=== PATIENT | male | born 1960 | race Caucasian/White ===

== ENCOUNTER → 2016-12-13 | Outpatient (CLI) | payer OTHER ==
[2016-12-13 16:47] LABS: Bilirubin, Delta 0.3 mg/dL (0.0-0.2); Total Bilirubin 0.7 mg/dL (0.2-1.3); Total Protein 7.5 g/dL (6.3-8.2)
== END ==
LOC: LABWHC1 16:11
PROVIDERS: ATTEND Psychiatry & Neurology Neurology
DX: R56.9 Unspecified convulsions (principal)
CPT/HCPCS: 36415; 80076

== ENCOUNTER → 2017-05-30 | Outpatient (CLI) | payer MEDICARE, OTHER ==
[2017-05-30 11:45] LABS: Basophils % (A) 1 %; CH 31.6; CHCM 33.7; Eosinophils # (A) 0.1 k/uL (0-0.7); Eosinophils % (A) 2 %; HCT 43.6 % (39.0-53.0); HDW 2.79; HGB 14.9 gm/dL (13.0-17.5); Luc # (Auto) 0.16; Luc % (Auto) 3; Lymphocytes # (A) 0.9 k/uL (1.0-4.8); Lymphocytes % (A) 17 %; MCH 32.3 pg (25.0-35.0); MCHC 34.2 g/dL (31.0-37.0); MCV 94.3 fL (80.0-100.0); Mean Platelet Volume 7.5; Monocytes # (A) 0.3 k/uL (0-1.0); Monocytes % (A) 6 %; Neutrophils # (A) 3.8 k/uL (1.3-7.7); Neutrophils % (A) 71 %; RBC 4.63 m/uL (4.30-5.90); RDW 13.9 % (11.5-15.5); WBC 5.3 k/uL (3.8-10.6); WBC (Perox) 5.24
[2017-05-30 11:55] LABS: ALT 27 U/L (21-72); AST 31 U/L (17-59); Alkaline Phosphatase 78 U/L (38-126); Anion Gap 14 mmol/L; Blood Urea Nitrogen 18 mg/dL (9-20); Calcium 9.8 mg/dL (8.4-10.2); Carbon Dioxide 19 mmol/L (22-30); Chloride 108 mmol/L (98-107); Glucose 97 mg/dL (74-99); Non-African American GFR(MDRD) >60 (>60 ml/min/1.73 sqM); Potassium 4.2 mmol/L (3.5-5.1); Sodium 141 mmol/L (137-145); Total Bilirubin 0.5 mg/dL (0.2-1.3); Total Protein 7.9 g/dL (6.3-8.2)
[2017-05-30 12:40] LABS: Vitamin B12 940 pg/mL (239-931)
== END | disposition home or self-care (01) ==
LOC: LABWHC1 11:00
PROVIDERS: ATTEND Nurse Practitioner Acute Care
DX: E55.9 Vitamin D deficiency, unspecified (principal); G35 Multiple sclerosis
CPT/HCPCS: 36415; 80053; 82306; 82607; 84207; 84439; 84443; 84481; 85025

== ENCOUNTER 2017-08-08 11:44 | Emergency (ER) | payer MEDICARE, OTHER ==
[2017-08-08 11:56] VITALS: RESP 18; TEMP 97.4
[2017-08-08] MEDS ORDERED: DIPH,PERTUS(ACELL)TETVAC-LF 0.5 ML VIAL IM ONE (12:13)
--- NOTE | 2017-08-08 12:19 | ED ---
General Adult HPI - General Chief complaint: Skin/Abscess/Foreign Body Stated complaint: Thumb laceration Time Seen by Provider: 08/08/17 12:04 Source: patient, RN notes reviewed, old records reviewed Mode of arrival: wheelchair Limitations: no limitations - History of Present Illness Initial comments: Rohit is a 49-year-old male presents to the emergency Department chief complaint of left thumb laceration. Patient reports he was wearing gloves, and cut the tip of his thumb on a circular saw. No nail involvement. Patient reports the bleeding was well controlled afterwards. He has a history of nerve disorders including EMS. He reports that he normally has poor sensation distally. He reports that below the cut he does have some normal sensation. Patient states that he has full range of motion of the finger. He does not know the last tetanus shot he's had. Patient denies any other injuries associated with this accident. Patient denies any recent fever, chills, shortness of breath, chest pain, back pain, abdominal pain, nausea vomiting, numbness or tingling, dysuria or hematuria, constipation or diarrhea, headaches or visual changes, or any other current symptoms - Related Data Home Medications Medication Instructions Recorded Confirmed Aspirin 81 mg PO DAILY 12/10/14 08/08/17 Losartan Potassium [Losartan 100 mg PO DAILY 12/11/14 08/08/17 Potassium] Dimethyl Fumarate [Tecfidera] 240 mg PO BID 08/27/15 08/08/17 ALPRAZolam [Xanax] 0.25 mg PO DAILY PRN 09/10/15 08/08/17 Baclofen [Lioresal] 10 mg PO TID 09/10/15 08/08/17 Cholecalciferol [Vitamin D3] 2,000 unit PO DAILY 09/10/15 08/08/17 Cetirizine HCl [Zyrtec] 10 mg PO HS 08/08/17 08/08/17 Clopidogrel Bisulfate [Plavix] 75 mg PO HS 08/08/17 08/08/17 Fluticasone Nasal [place] [Flonase 2 spr EA NOSTRIL DAILY 08/08/17 08/08/17 Nasal [place]] Gabapentin 600 mg PO TID 08/08/17 08/08/17 HYDROcodone/APAP 10-325MG [[place] 1 tab PO TID PRN 08/08/17 08/08/17 10-325] Meloxicam [Mobic] 15 mg PO HS 08/08/17 08/08/17 Omeprazole 20 mg PO DAILY 08/08/17 08/08/17 Topiramate [Topamax] 200 mg PO BID 08/08/17 08/08/17 lamoTRIgine [LaMICtal] 100 mg PO BID 08/08/17 08/08/17 Allergies Allergy/AdvReac Type Severity Reaction Status Date / Time Iodinated Contrast- Oral and Allergy Anaphylaxis Verified 08/08/17 12:06 IV Dye [Iodinated Contrast Media - IV Dye] prochlorperazine edisylate Allergy Swelling Verified 08/08/17 12:06 [From Compazine] prochlorperazine maleate Allergy Swelling Verified 08/08/17 12:06 [From Compazine] [id number] Reductase AdvReac Unknown Verified 08/08/17 12:06 Inhibitor Review of Systems ROS Statement: Those systems with pertinent positive or pertinent negative responses have been documented in the HPI. ROS Other: All systems not noted in ROS Statement are negative. Past Medical History Past Medical History: CVA/TIA, GERD/Reflux, Hyperlipidemia, Hypertension, Neurologic Disorder, Seizure Disorder Additional Past Medical History / Comment(s): Multiple Sclerosis,numbness. rediculopathy, myopathy, back and neck problems. 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 History of Any Multi-Drug Resistant Organisms: None Reported Past Surgical History: Back Surgery, Orthopedic Surgery Additional Past Surgical History / Comment(s): right foot surgery - 40 years ago january 2015- surgery fusion to cervical, and replaced disc neck, Past Anesthesia/Blood Transfusion Reactions: No Reported Reaction Past Psychological History: No Psychological Hx Reported Smoking Status: Current every day smoker Past Alcohol Use History: None Reported Past Drug Use History: None Reported - Past Family History Mother Family Medical History: No Reported History General Exam Limitations: no limitations General appearance: alert, in no apparent distress Head exam: Present: atraumatic, normocephalic, normal inspection Eye exam: Present: normal appearance, PERRL, EOMI. Absent: scleral icterus, conjunctival injection, periorbital swelling ENT exam: Present: normal exam, mucous membranes moist Neck exam: Present: normal inspection. Absent: tenderness, meningismus, lymphadenopathy Respiratory exam: Present: normal lung sounds bilaterally. Absent: respiratory distress, wheezes, rales, rhonchi, stridor Cardiovascular Exam: Present: regular rate, normal rhythm, normal heart sounds. Absent: systolic murmur, diastolic murmur, rubs, gallop, clicks GI/Abdominal exam: Present: soft, normal bowel sounds. Absent: distended, tenderness, guarding, rebound, rigid Left Shoulder Exam: Present: normal inspection, full ROM. Absent: tenderness Upper Arm exam: Present: normal inspection, full ROM Elbow exam: Present: normal inspection, full ROM Forearm Wrist exam: Present: normal inspection, full ROM Hand Wrist exam: Present: laceration (2cm laceration over distal left thumb. No nail bed involvement. Normal sensation distally, normal cap refill). Absent: normal inspection Neuro motor exam: Present: wrist extension intact, thumb opposition intact, thumb IP flexion intact, thumb adduction intact, fingers 2-5 abduction intact Vascular: Present: normal capillary refill Back exam: Present: normal inspection Neurological exam: Present: alert, oriented X3, CN II-XII intact Psychiatric exam: Present: normal affect, normal mood Skin exam: Present: warm, dry, intact, normal color. Absent: rash Course Vital Signs 08/08/17 11:52 Temperature 97.4 F L Pulse Rate 67 Respiratory 18 Rate Blood Pressure 141/79 O2 Sat by Pulse 99 Oximetry Procedures - Laceration Laceration #1 Site: hand (left thumb) Size (cm): 2 Description: linear Depth: simple, single layer Anesthetic Used: lidocaine 1% Anesthesia Technique: local infiltration Amount (mls): 3 Pre-repair: wound explored, irrigated extensively Type of Sutures: nylon Size of Sutures: 5-0 Number of Sutures: 4 Technique: simple, interrupted Patient Tolerated Procedure: well, no complications Medical Decision Making - Medical Decision Making 57-year-old male presents emergency Department chief complaint of left thumb laceration after he cut it with a circular saw. He was wearing gloves. No nail bed involvement. Patient was given an updated tetanus vaccine. Wound was thoroughly irrigated, well proximal pain with 4 sutures. Discussed monitoring for any signs of infection including redness swelling or drainage. Discussed suture care instructions. He has full range of motion of the finger, normal sensation and normal capillary refill. Patient understands treatment plan will comply. Return parameters were discussed. Disposition Clinical Impression: Laceration of left thumb Disposition: HOME SELF-CARE Condition: Good Instructions: Care For Your Stitches (ED), Laceration (ED) Additional Instructions: Please return to the emergency room in 8-10 days to have sutures removed. Please leave wound covered for the first 24-48 hours and then leave open to air after that time. Please use clean soap and water to clean the suture area to prevent scabbing over the top of your sutures. Please watch for any signs of infection which may include but not limited to increased pain, swelling, redness , fever or chills. Please return to the emergency room if any signs of infection do occur. Please return to the emergency room for any other concerns or complications. Referrals: Juan C Saini III, MD [Primary Care Provider] - 1-2 days Time of Disposition: 12:19
[2017-08-08 13:01] VITALS: BP 128/66; PULSE 56
== END 2017-08-08 13:00 | disposition home or self-care (01) ==
LOC: EC 11:44
DX: S61.012A Laceration without foreign body of left thumb without damage to nail, initial encounter (principal); K21.9 Gastro-esophageal reflux disease without esophagitis; E78.5 Hyperlipidemia, unspecified; I10 Essential (primary) hypertension; G40.909 Epilepsy, unspecified, not intractable, without status epilepticus; G35 Multiple sclerosis; F17.200 Nicotine dependence, unspecified, uncomplicated; Z23 Encounter for immunization; Z86.73 Personal history of transient ischemic attack (TIA), and cerebral infarction without residual deficits; Z88.8 Allergy status to other drugs, medicaments and biological substances; Z91.041 Radiographic dye allergy status; Z79.1 Long term (current) use of non-steroidal anti-inflammatories (NSAID); Z79.02 Long term (current) use of antithrombotics/antiplatelets; Z79.82 Long term (current) use of aspirin; Z79.891 Long term (current) use of opiate analgesic; Z79.899 Other long term (current) drug therapy; W45.8XXA Other foreign body or object entering through skin, initial encounter
CPT/HCPCS: 12001; 90471; 90715; 99283

== ENCOUNTER → 2017-08-18 | Outpatient (CLI) | payer MEDICARE, OTHER ==
--- NOTE | 2017-08-18 23:25 | MR ---
EXAMINATION TYPE: MR corinine/lspine wo con DATE OF EXAM: 08/18/2017 COMPARISON: NONE HISTORY: Mid & lower back pain, MS protocol TECHNIQUE: Multiplanar, multisequence imaging of the lumbar spine is performed without IV contrast. M ultiplanar multiecho imaging of the thoracic spine was performed without contrast. FINDINGS: Thoracic vertebra have fairly normal alignment. Thoracic spinal cord has normal signal wilbur trudy without evidence of edema. There is posterior disc bulging at C4-5 C5-6 C6-7. There is 6 to 7 mm spinal stenosis at C4-5. There is posterior small disc herniation at T1-T2. There is no thoracic comp ression fracture. There is no thoracic paraspinal mass. I see no focal bone destruction. The lumbar vertebra have fairly normal alignment. There is slight narrowing of the disc spaces. There is developmentally adequate spinal canal. There is no spinal stenosis. Lumbar nerve roots appear nor mal. The neural foramina appear normal. Posterior elements are intact. There is no lumbar paraspinal mass. The sacroiliac joints appear normal. I see no focal bone destruction in the lumbar spine. There is a few millimeter anterior subluxation of L4 in relation L5. CONCLUSION: There is 6 to 7 mm cervical spinal stenosis at C4-5 due to posterior disc herniation. Small posterior disc herniation at T1 to without spinal stenosis. Multilevel thoracic spondylosis. No significant co mpression deformity. Minimal degenerative first-degree L4-5 spondylolisthesis. No lumbar disc herniation or fracture.
== END | disposition home or self-care (01) ==
LOC: RADMRIMAIN 17:44
PROVIDERS: ATTEND Psychiatry & Neurology Neurology
DX: G35 Multiple sclerosis (principal); M48.02 Spinal stenosis, cervical region; M50.221 Other cervical disc displacement at C4-C5 level; M51.24 Other intervertebral disc displacement, thoracic region; M43.16 Spondylolisthesis, lumbar region; M47.814 Spondylosis without myelopathy or radiculopathy, thoracic region
CPT/HCPCS: 72146; 72148

== ENCOUNTER → 2017-08-21 | Outpatient (CLI) | payer MEDICARE, OTHER ==
[2017-08-21 12:16] LABS: Blood Urea Nitrogen 17 mg/dL (9-20); Non-African American GFR(MDRD) >60 (>60 ml/min/1.73 sqM)
--- NOTE | 2017-08-22 08:50 | MR ---
EXAMINATION TYPE: MR brain/cspine wo/w DATE OF EXAM: 08/21/2017 COMPARISON: 08/23/2016 HISTORY: Multiple sclerosis, Cervicalgia CONTRAST: Performed utilizing 9 mL intravenous Gadavist gadolinium contrast. TECHNIQUE: Multiplanar, multisequence imaging of the brain is performed on a 3.0 Korin magnet. Demye linating disease protocol with additional Sagittal Flair sequence is performed. Study is performed wi thin 24 hours of arrival to the hospital. FINDINGS: T2 White Matter Lesions Present : Yes Approximate Number of Lesions: Multiple scattered Locations Identified : Symptoms, subcortical white matter and periventricular white matter Size of Largest Lesion(s): 1. 0.4 x 0.5 x 0.5 cm. Location: Right watershed white matter Sequence 601 Image 20 (axial) and Sequ ence 701 Image 25 (sagittal). 2. 0.5 x 0.6 x 0.5 cm. Location: Left periventricular centrum semiovale Sequence 601 Image 22 (axia l) and Sequence 701 Image 14 (sagittal). Enhancing Lesion(s) Present: No Change from Prior: Stable Diffusion-weighted imaging is performed. No abnormal hyperintensity is present to suggest an acute i ntracranial infarct or acute ischemic change. Ventricles and sulci are slightly prominent for the patient age. There are no abnormal extra-axial fluid collections. The ventricular system and cisternal spaces are normal in size and appearance. The brain volume is age appropriate. The craniocervical junction nell ears within normal limits. The dural venous sinuses appear patent. No abnormal enhancement is present on post contrast images. . The visualized sinuses are clear. Visu alized orbits are unremarkable. IMPRESSION: 1. Multiple bilateral scattered white matter changes, some of which are perpendicular to the ventric les can be suggestive for, but not diagnostic of, multiple sclerosis. The findings appear stable from the previous examination. EXAMINATION TYPE: MR brain/cspine wo/w DATE OF EXAM: 08/21/2017 COMPARISON: NONE HISTORY: Multiple sclerosis, Cervicalgia CONTRAST: Performed utilizing 9 mL intravenous Gadavist gadolinium contrast. TECHNIQUE: Multiplanar multiecho imaging on a 3.0 Korin magnet is performed through the cervical spin e. FINDINGS: The craniovertebral junction is normal. Vertebral body alignment is normal. There is an anterior fusion of C3-4. C7-T1: No focal disc herniation or significant disc bulge is evident. No spinal canal stenosis or n eural foraminal stenosis is present. C6-7: Minimal disc bulge is present with anterior thecal sac contact. No spinal canal stenosis presen t. No cord contact is evident. Some foraminal narrowing may be present.. C5-6: There is narrowing of the disc space. Minimal residual disc bulge has moderate anterior thecal sac compression. Mild bilateral foraminal narrowing is present.. C4-5: Disc bulge has moderate anterior thecal sac compression. Some cord contact without cord deformi ty may be present. No spinal canal stenosis present. Mild foraminal narrowing is present.. C3-4: No residual disc space is identified. There is some endplate change with mild central anterior thecal sac compression which comes in close approximation with spinal cord. Neural foramen are patent . No AP spinal canal stenosis is present.. C2-3: No focal disc herniation or significant disc bulge is evident. No spinal canal stenosis or charlene ral foraminal stenosis is present. Cord signal appears normal. No suspicious hyperintensity is identified suggest multiple sclerosis sindy ques within the cervical spinal cord. IMPRESSIONS: 1. Degenerative disc changes and disc bulging greatest at 5 and milder anterior thecal sac compressio n at C5-6 and C6-7. 2. No suspicious changes of multiple sclerosis within the cervical spinal cord.
== END | disposition home or self-care (01) ==
LOC: RADMRIMAIN 11:45
PROVIDERS: ATTEND Psychiatry & Neurology Neurology
DX: M50.222 Other cervical disc displacement at C5-C6 level (principal); M50.322 Other cervical disc degeneration at C5-C6 level; R90.89 Other abnormal findings on diagnostic imaging of central nervous system
CPT/HCPCS: 82565; 84520; 70553; 72156; 36415; A9581

== ENCOUNTER → 2017-11-21 | Outpatient (CLI) | payer MEDICARE, OTHER ==
[2017-11-21 18:13] LABS: Hepatitis B Core IgM Non-Reactive (Non-Reactive); Hepatitis B Surface AB- Quant 12.6 mIU/mL
== END | disposition home or self-care (01) ==
LOC: LABWHC1 10:26
PROVIDERS: ATTEND Psychiatry & Neurology Neurology
DX: G35 Multiple sclerosis (principal)
CPT/HCPCS: 36415; 86704; 86705; 86706; 87340

== ENCOUNTER → 2018-05-08 | Outpatient (CLI) | payer MEDICARE ==
[2018-05-08 09:20] LABS: Basophils % (A) 0 %; Eosinophils # (A) 0.3 k/uL (0-0.7); Eosinophils % (A) 4 %; HCT 37.8 % (39.0-53.0); HGB 12.1 gm/dL (13.0-17.5); Lymphocytes # (A) 0.8 k/uL (1.0-4.8); Lymphocytes % (A) 12 %; MCV 93.9 fL (80.0-100.0); Monocytes # (A) 0.4 k/uL (0-1.0); Monocytes % (A) 6 %; Neutrophils # (A) 5.3 k/uL (1.3-7.7); Neutrophils % (A) 77 %; Platelet Count 274 k/uL (150-450); RBC 4.02 m/uL (4.30-5.90); RDW 12.9 % (11.5-15.5); WBC 6.9 k/uL (3.8-10.6)
== END | disposition home or self-care (01) ==
LOC: LABWHC1 08:51
PROVIDERS: ATTEND Psychiatry & Neurology Pain Medicine
DX: S31.109A Unspecified open wound of abdominal wall, unspecified quadrant without penetration into peritoneal cavity, initial encounter (principal)
CPT/HCPCS: 36415; 85025

== ENCOUNTER 2018-05-12 21:19 | Emergency (ER) | payer MEDICARE ==
[2018-05-12] MEDS ORDERED: SODIUM CHLORIDE 0.9% 1,000 ML IV STA (21:58)
[2018-05-12] MEDS ORDERED: FAMOTIDINE 20 MG/2 ML VIAL IV STA (22:09)
[2018-05-12] MEDS ORDERED: diphenhydrAMINE 50 MG/ML 1 ML VIAL IVP STA (22:09)
[2018-05-12] MEDS ORDERED: methylPREDNISolone SOD SUCCI 125 MG/2 ML VIAL IV STA (22:09)
[2018-05-12 22:10] LABS: Appearance,Urine Clear (Clear); Bilirubin,Urine Negative (Negative); Blood,Urine Negative (Negative); Color,Urine Yellow; Glucose,Urine (UA) Negative (Negative); Ketones,Urine Negative (Negative); Leukocyte Esterase,Urine Negative (Negative); Nitrite,Urine Negative (Negative); PH, Urine 5.5 (5.0-8.0); Protein,Urine Trace (Negative); Specific Gravity,Urine 1.017 (1.001-1.035)
--- NOTE | 2018-05-12 22:16 | ED ---
General Adult HPI - General Chief complaint: GI Bleed Stated complaint: Vomiting blood Time Seen by Provider: 05/12/18 21:40 Source: patient, family, RN notes reviewed, old records reviewed Mode of arrival: wheelchair Limitations: no limitations - History of Present Illness Initial comments: 58-year-old male presenting with hematemesis. Patient is accompanied by his family members. They state he had total 4 episodes of vomiting all for these episodes did contain blood. This was red in color. Patient states that approximately 2-3 hours ago he had a bloody nose which resolved spontaneously. During the episode his family member states he was lee, pale, and somewhat confused. This resolved prior to my evaluation. He is alert and oriented. Denies drugs or alcohol. He has no pain complaints. He is currently being treated with antibiotics for a abdominal wall infection secondary to a pain pump. He is on BiPAP strength Bactrim. Denies any significant pain at the site. Denies diarrhea. Denies melena or rectal bleeding. - Related Data Home Medications Medication Instructions Recorded Confirmed Aspirin 81 mg PO DAILY 12/10/14 08/08/17 Losartan Potassium 100 mg PO DAILY 12/11/14 08/08/17 Dimethyl Fumarate [Tecfidera] 240 mg PO BID 08/27/15 08/08/17 ALPRAZolam [Xanax] 0.25 mg PO DAILY PRN 09/10/15 08/08/17 Baclofen [Lioresal] 10 mg PO TID 09/10/15 08/08/17 Cholecalciferol [Vitamin D3] 2,000 unit PO DAILY 09/10/15 08/08/17 Cetirizine HCl [Zyrtec] 10 mg PO HS 08/08/17 08/08/17 Clopidogrel Bisulfate [Plavix] 75 mg PO HS 08/08/17 08/08/17 Fluticasone Nasal [place] [Flonase 2 spr EA NOSTRIL DAILY 08/08/17 08/08/17 Nasal [place]] Gabapentin 600 mg PO TID 08/08/17 08/08/17 HYDROcodone/APAP 10-325MG [[place] 1 tab PO TID PRN 08/08/17 08/08/17 10-325] Meloxicam [Mobic] 15 mg PO HS 08/08/17 08/08/17 Omeprazole 20 mg PO DAILY 08/08/17 08/08/17 Topiramate [Topamax] 200 mg PO BID 08/08/17 08/08/17 lamoTRIgine [LaMICtal] 100 mg PO BID 08/08/17 08/08/17 Allergies Allergy/AdvReac Type Severity Reaction Status Date / Time Iodinated Contrast- Oral and Allergy Anaphylaxis Verified 05/12/18 21:36 IV Dye [Iodinated Contrast Media - IV Dye] prochlorperazine edisylate Allergy Swelling Verified 05/12/18 21:36 [From Compazine] prochlorperazine maleate Allergy Swelling Verified 05/12/18 21:36 [From Compazine] [id number]-[id number]-Rpm Reductase AdvReac Unknown Verified 05/12/18 21:36 Inhibitor Review of Systems ROS Statement: Those systems with pertinent positive or pertinent negative responses have been documented in the HPI. ROS Other: All systems not noted in ROS Statement are negative. Past Medical History Past Medical History: CVA/TIA, GERD/Reflux, Hyperlipidemia, Hypertension, Neurologic Disorder, Seizure Disorder Additional Past Medical History / Comment(s): Multiple Sclerosis,numbness. rediculopathy, myopathy, back and neck problems. 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 History of Any Multi-Drug Resistant Organisms: None Reported Past Surgical History: Back Surgery, Orthopedic Surgery Additional Past Surgical History / Comment(s): right foot surgery - 40 years ago january 2015- surgery fusion to cervical, and replaced disc neck, Past Anesthesia/Blood Transfusion Reactions: No Reported Reaction Past Psychological History: No Psychological Hx Reported Smoking Status: Current every day smoker Past Alcohol Use History: None Reported Past Drug Use History: None Reported - Past Family History Mother Family Medical History: No Reported History General Exam Limitations: no limitations General appearance: alert, in no apparent distress Head exam: Present: atraumatic, normocephalic Eye exam: Present: normal appearance, PERRL ENT exam: Present: mucous membranes dry Neck exam: Present: normal inspection. Absent: tenderness, meningismus Respiratory exam: Present: normal lung sounds bilaterally. Absent: respiratory distress, wheezes Cardiovascular Exam: Present: regular rate, normal rhythm GI/Abdominal exam: Present: soft, other (Left anterior abdominal wall cellulitis and erythema, no fluctuance.). Absent: distended, tenderness Extremities exam: Present: normal inspection, normal capillary refill. Absent: pedal edema Neurological exam: Present: alert, oriented X3, CN II-XII intact. Absent: motor sensory deficit Psychiatric exam: Present: normal affect, normal mood Skin exam: Present: warm, dry, intact. Absent: cyanosis, diaphoretic Course Vital Signs 05/12/18 21:29 Temperature 98.3 F Pulse Rate 77 Respiratory 18 Rate Blood Pressure 164/82 O2 Sat by Pulse 97 Oximetry - Reevaluation(s) Reevaluation #1: 05/13/18 00:03 On reevaluation, patient remains asymptomatic, no nausea vomiting while in the emergency department. Vital stable. Medical Decision Making - Medical Decision Making 58-year-old male presenting with 4 episodes of vomiting. There was blood in the vomit. Patient does admit to nosebleed which resolved spontaneously several hours prior to vomiting episodes. Patient is not on any anticoagulation. He does clinically appear very dehydrated, dry mucous membranes. Laboratory studies reveal normal white blood cell count, hemoglobin is stable from previous at 12.9 which is improved from 12.1. Creatinine is elevated 1.7 from baseline of 1. This likely secondary to dehydration. Patient does receive IV hydration while in the emergency department. Urinalysis is clear. CT shows concern for possible CHF however patient clinically does not have CHF, is not hypoxic, lungs clear, and no peripheral edema. BNP is obtained which is normal. CT of the abdomen does show the implantable device, there is no adjacent fluid collection or drainable abscess. This is likely just cellulitis and can be continued to be treated with oral antibiotics. Patient's family members are informed of all lab results and imaging. Patient is offered observation for continued IV hydration, they declined patient will be discharged home, continue taking oral hydration at home. Return with worsening or changing symptoms. Patient will observe for melanotic stool. Will return with any worsening vomiting or hematemesis. - Lab Data Result diagrams: 05/12/18 21:50 05/12/18 21:50 Lab Results 05/12/18 05/12/18 05/12/18 Range/Units 21:42 21:50 21:50 WBC 8.3 (3.8-10.6) k/uL RBC 4.20 L (4.30-5.90) m/uL Hgb 12.9 L (13.0-17.5) gm/dL Hct 39.2 (39.0-53.0) % MCV 93.4 (80.0-100.0) fL MCH 30.7 (25.0-35.0) pg MCHC 32.9 (31.0-37.0) g/dL RDW 12.8 (11.5-15.5) % Plt Count 304 (150-450) k/uL Neutrophils % 84 % Lymphocytes % 8 % Monocytes % 5 % Eosinophils % 1 % Basophils % 0 % Neutrophils # 7.0 (1.3-7.7) k/uL Lymphocytes # 0.7 L (1.0-4.8) k/uL Monocytes # 0.4 (0-1.0) k/uL Eosinophils # 0.1 (0-0.7) k/uL Basophils # 0.0 (0-0.2) k/uL PT (9.0-12.0) sec INR (<1.2) APTT (22.0-30.0) sec Sodium (137-145) mmol/L Potassium (3.5-5.1) mmol/L Chloride (98-107) mmol/L Carbon Dioxide (22-30) mmol/L Anion Gap mmol/L BUN (9-20) mg/dL Creatinine (0.66-1.25) mg/dL Est GFR (CKD-EPI)AfAm (>60 ml/min/1.73 sqM) Est GFR (CKD-EPI)NonAf (>60 ml/min/1.73 sqM) Glucose (74-99) mg/dL Plasma Lactic Acid [place]andy (0.7-2.0) mmol/L Calcium (8.4-10.2) mg/dL Magnesium (1.6-2.3) mg/dL Total Bilirubin (0.2-1.3) mg/dL AST (17-59) U/L ALT (21-72) U/L Alkaline Phosphatase (38-126) U/L Total Creatine Kinase 307 H (55-170) U/L CK-MB (CK-2) 4.2 H* (0.0-2.4) ng/mL CK-MB (CK-2) Rel Index 1.4 Troponin I (0.000-0.034) ng/mL NT-Pro-B Natriuret Pep pg/mL Total Protein (6.3-8.2) g/dL Albumin (3.5-5.0) g/dL Urine Color Yellow Urine Appearance Clear (Clear) Urine pH 5.5 (5.0-8.0) Ur Specific [place] 1.017 (1.001-1.035) Urine Protein Trace H (Negative) Urine Glucose (UA) Negative (Negative) Urine Ketones Negative (Negative) Urine Blood Negative (Negative) Urine Nitrite Negative (Negative) Urine Bilirubin Negative (Negative) Urine Urobilinogen 2.0 (<2.0) mg/dL Ur Leukocyte Esterase Negative (Negative) 05/12/18 05/12/18 05/12/18 Range/Units 21:50 21:50 21:50 WBC (3.8-10.6) k/uL RBC (4.30-5.90) m/uL Hgb (13.0-17.5) gm/dL Hct (39.0-53.0) % MCV (80.0-100.0) fL MCH (25.0-35.0) pg MCHC (31.0-37.0) g/dL RDW (11.5-15.5) % Plt Count (150-450) k/uL Neutrophils % % Lymphocytes % % Monocytes % % Eosinophils % % Basophils % % Neutrophils # (1.3-7.7) k/uL Lymphocytes # (1.0-4.8) k/uL Monocytes # (0-1.0) k/uL Eosinophils # (0-0.7) k/uL Basophils # (0-0.2) k/uL PT 10.2 (9.0-12.0) sec INR 1.0 (<1.2) APTT 25.1 (22.0-30.0) sec Sodium 140 (137-145) mmol/L Potassium 4.8 (3.5-5.1) mmol/L Chloride 106 (98-107) mmol/L Carbon Dioxide 20 L (22-30) mmol/L Anion Gap 14 mmol/L BUN 27 H (9-20) mg/dL Creatinine 1.70 H (0.66-1.25) mg/dL Est GFR (CKD-EPI)AfAm 50 (>60 ml/min/1.73 sqM) Est GFR (CKD-EPI)NonAf 43 (>60 ml/min/1.73 sqM) Glucose 90 (74-99) mg/dL Plasma Lactic Acid [place] 1.0 (0.7-2.0) mmol/L Calcium 9.6 (8.4-10.2) mg/dL Magnesium 2.2 (1.6-2.3) mg/dL Total Bilirubin 0.4 (0.2-1.3) mg/dL AST 32 (17-59) U/L ALT 24 (21-72) U/L Alkaline Phosphatase 74 (38-126) U/L Total Creatine Kinase (55-170) U/L CK-MB (CK-2) (0.0-2.4) ng/mL CK-MB (CK-2) Rel Index Troponin I (0.000-0.034) ng/mL NT-Pro-B Natriuret Pep pg/mL Total Protein 8.0 (6.3-8.2) g/dL Albumin 4.6 (3.5-5.0) g/dL Urine Color Urine Appearance (Clear) Urine pH (5.0-8.0) Ur Specific [place] (1.001-1.035) Urine Protein (Negative) Urine Glucose (UA) (Negative) Urine Ketones (Negative) Urine Blood (Negative) Urine Nitrite (Negative) Urine Bilirubin (Negative) Urine Urobilinogen (<2.0) mg/dL Ur Leukocyte Esterase (Negative) 05/12/18 05/12/18 Range/Units 21:50 21:50 WBC (3.8-10.6) k/uL RBC (4.30-5.90) m/uL Hgb (13.0-17.5) gm/dL Hct (39.0-53.0) % MCV (80.0-100.0) fL MCH (25.0-35.0) pg MCHC (31.0-37.0) g/dL RDW (11.5-15.5) % Plt Count (150-450) k/uL Neutrophils % % Lymphocytes % % Monocytes % % Eosinophils % % Basophils % % Neutrophils # (1.3-7.7) k/uL Lymphocytes # (1.0-4.8) k/uL Monocytes # (0-1.0) k/uL Eosinophils # (0-0.7) k/uL Basophils # (0-0.2) k/uL PT (9.0-12.0) sec INR (<1.2) APTT (22.0-30.0) sec Sodium (137-145) mmol/L Potassium (3.5-5.1) mmol/L Chloride (98-107) mmol/L Carbon Dioxide (22-30) mmol/L Anion Gap mmol/L BUN (9-20) mg/dL Creatinine (0.66-1.25) mg/dL Est GFR (CKD-EPI)AfAm (>60 ml/min/1.73 sqM) Est GFR (CKD-EPI)NonAf (>60 ml/min/1.73 sqM) Glucose (74-99) mg/dL Plasma Lactic Acid [place] (0.7-2.0) mmol/L Calcium (8.4-10.2) mg/dL Magnesium (1.6-2.3) mg/dL Total Bilirubin (0.2-1.3) mg/dL AST (17-59) U/L ALT (21-72) U/L Alkaline Phosphatase (38-126) U/L Total Creatine Kinase (55-170) U/L CK-MB (CK-2) (0.0-2.4) ng/mL CK-MB (CK-2) Rel Index Troponin I <0.012 (0.000-0.034) ng/mL NT-Pro-B Natriuret Pep 97 pg/mL Total Protein (6.3-8.2) g/dL Albumin (3.5-5.0) g/dL Urine Color Urine Appearance (Clear) Urine pH (5.0-8.0) Ur Specific [place] (1.001-1.035) Urine Protein (Negative) Urine Glucose (UA) (Negative) Urine Ketones (Negative) Urine Blood (Negative) Urine Nitrite (Negative) Urine Bilirubin (Negative) Urine Urobilinogen (<2.0) mg/dL Ur Leukocyte Esterase (Negative) Disposition Clinical Impression: Nausea & vomiting, Abdominal wall cellulitis Disposition: HOME SELF-CARE Condition: Good Instructions: Acute Nausea and Vomiting (ED), Cellulitis (ED) Additional Instructions: Continue antibiotics as prescribed. Follow up with both primary care and neurology. Is patient prescribed a controlled substance at d/c from ED?: No Referrals: Juan C Saini III, MD [Primary Care Provider] - 1-2 days Chelsy Sr MD [STAFF PHYSICIAN] - 1-2 days Time of Disposition: 00:07
[2018-05-12 22:37] LABS: Basophils % (A) 0 %; Eosinophils # (A) 0.1 k/uL (0-0.7); Eosinophils % (A) 1 %; HCT 39.2 % (39.0-53.0); HGB 12.9 gm/dL (13.0-17.5); Lymphocytes # (A) 0.7 k/uL (1.0-4.8); Lymphocytes % (A) 8 %; MCH 30.7 pg (25.0-35.0); MCHC 32.9 g/dL (31.0-37.0); MCV 93.4 fL (80.0-100.0); Mean Platelet Volume 7.3; Monocytes # (A) 0.4 k/uL (0-1.0); Monocytes % (A) 5 %; Neutrophils % (A) 84 %; Platelet Count 304 k/uL (150-450); RDW 12.8 % (11.5-15.5); WBC 8.3 k/uL (3.8-10.6)
[2018-05-12 22:44] LABS: Albumin 4.6 g/dL (3.5-5.0); Calcium 9.6 mg/dL (8.4-10.2); Magnesium 2.2 mg/dL (1.6-2.3); Partial Thromboplastin Time 25.1 sec (22.0-30.0); Potassium 4.8 mmol/L (3.5-5.1); Prothrombin Time 10.2 sec (9.0-12.0); Total Bilirubin 0.4 mg/dL (0.2-1.3)
[2018-05-12] MEDS ORDERED: SODIUM CHLORIDE 0.9% 1,000 ML IV SCH (23:00)
[2018-05-12 23:12] LABS: Creatine Kinase MB 4.2 ng/mL (0.0-2.4)
[2018-05-12] MEDS ORDERED: SODIUM CHLORIDE 0.9% 500 ML IV ONE (23:13)
--- NOTE | 2018-05-12 23:15 | CT ---
EXAMINATION TYPE: CT abdomen pelvis w con DATE OF EXAM: 05/12/2018 COMPARISON: 08/04/2015 HISTORY: Vomiting blood. Infection around pain pump. CT DLP: 1532.1 mGycm Automated exposure control for dose reduction was used. TECHNIQUE: Helical acquisition of images was performed from the lung bases through the pelvis. CONTRAST: Performed without Oral Contrast and with IV Contrast, patient injected with 100 mL of Isovue 300. FINDINGS: Heart is enlarged. There is interstitial pulmonary infiltrate at the lung bases. There is no pleural effusion. Liver spleen pancreas gallbladder appear normal. Bile ducts are not dilated. There is no adrenal mass . Kidneys show satisfactory contrast opacification. There is no hydronephrosis. There is a 1 cm corti gabino cyst posterior left kidney. There is 1 cm cortical cyst anterior right kidney. There is an implan tona device over the left anterior abdomen. There is no retroperitoneal adenopathy. There is no ascites. Appendix appears normal. I see no intest inal wall thickening. There are no dilated loops. There is no ascites. Bladder distends smoothly. The re is no free fluid in the pelvis. There is no sign of free air. There is some spurring in the lumbar spine. There is no compression fracture. I see no bony destructive process. IMPRESSION: MILD CARDIOMEGALY. INTERSTITIAL INFILTRATES IN THE LOWER LOBES. NO PLEURAL FLUID. THIS COULD RELATE T O MILD HEART FAILURE. IMPLANTED PUMP OVER THE LEFT ANTERIOR ABDOMEN. NO FLUID AROUND THE PUMP IDENTIFIED. NO SIGN OF ACUTE ABDOMEN AND PELVIS.
[2018-05-13 00:32] VITALS: BP 141/78; PULSE 71; RESP 17; TEMP 98.1
== END 2018-05-13 00:32 | disposition home or self-care (01) ==
LOC: EC 21:19
DX: L03.311 Cellulitis of abdominal wall (principal); R11.2 Nausea with vomiting, unspecified; K21.9 Gastro-esophageal reflux disease without esophagitis; I10 Essential (primary) hypertension; G40.909 Epilepsy, unspecified, not intractable, without status epilepticus; F17.200 Nicotine dependence, unspecified, uncomplicated; Z86.73 Personal history of transient ischemic attack (TIA), and cerebral infarction without residual deficits; Z79.82 Long term (current) use of aspirin; Z79.02 Long term (current) use of antithrombotics/antiplatelets; Z79.51 Long term (current) use of inhaled steroids; Z79.1 Long term (current) use of non-steroidal anti-inflammatories (NSAID); Z79.899 Other long term (current) drug therapy; Z91.041 Radiographic dye allergy status; Z88.8 Allergy status to other drugs, medicaments and biological substances; Z53.29 Procedure and treatment not carried out because of patient's decision for other reasons
CPT/HCPCS: 99285; 96374; 96375 ×2; 96361 ×2; 36415; 83880; 80053; 82550; 82553; 83605; 83735; 84484; 85025; 85610; 85730; 81003; 87040; 74177; J1200; J2930; Q9967

== ENCOUNTER → 2018-06-28 | Outpatient (CLI) | payer MEDICARE ==
[2018-06-28 10:28] LABS: Basophils % (A) 1 %; Eosinophils # (A) 0.3 k/uL (0-0.7); Eosinophils % (A) 5 %; HCT 40.6 % (39.0-53.0); HGB 12.8 gm/dL (13.0-17.5); Lymphocytes # (A) 1.1 k/uL (1.0-4.8); Lymphocytes % (A) 17 %; MCH 29.6 pg (25.0-35.0); MCHC 31.5 g/dL (31.0-37.0); MCV 93.9 fL (80.0-100.0); Monocytes # (A) 0.3 k/uL (0-1.0); Monocytes % (A) 5 %; Neutrophils # (A) 4.4 k/uL (1.3-7.7); Neutrophils % (A) 70 %; Platelet Count 273 k/uL (150-450); RBC 4.32 m/uL (4.30-5.90); RDW 13.3 % (11.5-15.5); WBC 6.3 k/uL (3.8-10.6)
== END | disposition home or self-care (01) ==
LOC: LABWHC1 09:00
PROVIDERS: ATTEND Psychiatry & Neurology Pain Medicine
DX: S31.109A Unspecified open wound of abdominal wall, unspecified quadrant without penetration into peritoneal cavity, initial encounter (principal)
CPT/HCPCS: 36415; 85025

== ENCOUNTER 2018-07-08 18:25 | Emergency (ER) | payer MEDICARE ==
[2018-07-08] MEDS ORDERED: SODIUM CHLORIDE 0.9% 1,000 ML IV STA (19:29)
[2018-07-08] MEDS ORDERED: MORPHINE SULFATE 4 MG/ML SYRINGE IVP STA ×2 (19:29→20:53)
--- NOTE | 2018-07-08 19:37 | ED ---
General Adult HPI - General Chief complaint: Extremity Injury, Lower Stated complaint: post op problems Time Seen by Provider: 07/08/18 18:47 Source: patient, RN notes reviewed Mode of arrival: ambulatory Limitations: no limitations - History of Present Illness Initial comments: This is a 58-year-old male who presents to the emergency department with chief complaint of restless legs. Patient reports a history of multiple neurological issues including multiple sclerosis, restless leg syndrome, chronic back and neck pain with surgeries. Patient states that he had an intrathecal pain pump removed on Monday because it became infected. He states that over the weekend he has developed restless legs. He states that his legs tense up, shake and become very painful. He states this only happens when he is resting. He does report a history of restless leg syndrome but states he has not experienced this since before having the pain pump and reports that it is worse now than it has ever been. He states that prior to arrival to the emergency department, he called Dr. Sr. Dr. Sr increased baclofen medication and told patient to not report to the emergency department. Patient reports Dr. Sr told him that if he came to the emergency department he would receive pain medication and would only last one hour. Patient sees Dr. Sr for his back issues and has a neurologist at [facility] that manages his multiple sclerosis. Patient states that prior to having a pain pump he ambulated with a cane and has been using the cane again since having it removed. He denies any fevers or chills, chest pain or shortness of breath, abdominal pain, nausea or vomiting. He denies increase in back pain, saddle paresthesias or loss of bladder or bowel function. He states that he is currently taking oxycodone, baclofen, Xanax and Neurontin. Denies any injuries. - Related Data Home Medications Medication Instructions Recorded Confirmed Aspirin 81 mg PO DAILY 12/10/14 08/08/17 Losartan Potassium 100 mg PO DAILY 12/11/14 08/08/17 Dimethyl Fumarate [Tecfidera] 240 mg PO BID 08/27/15 08/08/17 ALPRAZolam [Xanax] 0.25 mg PO DAILY PRN 09/10/15 08/08/17 Baclofen [Lioresal] 10 mg PO TID 09/10/15 08/08/17 Cholecalciferol [Vitamin D3] 2,000 unit PO DAILY 09/10/15 08/08/17 Cetirizine HCl [Zyrtec] 10 mg PO HS 08/08/17 08/08/17 Clopidogrel Bisulfate [Plavix] 75 mg PO HS 08/08/17 08/08/17 Fluticasone Nasal [place] [Flonase 2 spr EA NOSTRIL DAILY 08/08/17 08/08/17 Nasal [place]] Gabapentin 600 mg PO TID 08/08/17 08/08/17 HYDROcodone/APAP 10-325MG [[place] 1 tab PO TID PRN 08/08/17 08/08/17 10-325] Meloxicam [Mobic] 15 mg PO HS 08/08/17 08/08/17 Omeprazole 20 mg PO DAILY 08/08/17 08/08/17 Topiramate [Topamax] 200 mg PO BID 08/08/17 08/08/17 lamoTRIgine [LaMICtal] 100 mg PO BID 08/08/17 08/08/17 Allergies Allergy/AdvReac Type Severity Reaction Status Date / Time Iodinated Contrast- Oral and Allergy Anaphylaxis Verified 05/12/18 21:36 IV Dye [Iodinated Contrast Media - IV Dye] prochlorperazine edisylate Allergy Swelling Verified 05/12/18 21:36 [From Compazine] prochlorperazine maleate Allergy Swelling Verified 05/12/18 21:36 [From Compazine] Skpheda-Sqe-Knl Reductase AdvReac Unknown Verified 05/12/18 21:36 Inhibitor Review of Systems ROS Statement: Those systems with pertinent positive or pertinent negative responses have been documented in the HPI. ROS Other: All systems not noted in ROS Statement are negative. Past Medical History Past Medical History: CVA/TIA, GERD/Reflux, Hyperlipidemia, Hypertension, Neurologic Disorder, Seizure Disorder Additional Past Medical History / Comment(s): Multiple Sclerosis,numbness. rediculopathy, myopathy, back and neck problems. 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 History of Any Multi-Drug Resistant Organisms: None Reported Past Surgical History: Back Surgery, Orthopedic Surgery Additional Past Surgical History / Comment(s): right foot surgery - 40 years ago january 2015- surgery fusion to cervical, and replaced disc neck, Past Anesthesia/Blood Transfusion Reactions: No Reported Reaction Past Psychological History: No Psychological Hx Reported Smoking Status: Current every day smoker Past Alcohol Use History: None Reported Past Drug Use History: None Reported - Past Family History Mother Family Medical History: No Reported History General Exam - General Exam Comments Initial Comments: General: Awake and alert, well-developed; in no apparent distress. HEENT: Head atraumatic, normocephalic. Pupils are equal, round and reactive to light. Extraocular movements intact. Oropharynx moist without erythema or exudate. Neck: Supple. Normal ROM. Cardiovascular: Regular rate and rhythm. No murmurs, rubs or gallops. Chest symmetrical. Respiratory: Lungs clear to auscultation bilaterally. No wheezes, rales or rhonchi. Normal respiratory effort with no use of accessory muscles. Abdomen: Soft, non-tender, non-distended. No rigidity, rebound or guarding. Incision to left lower abdomen is well-healing without surrounding erythema or tenderness. Amanda are intact. Musculoskeletal: Normal ROM, no tenderness bilateral upper and lower extremities. Ambulating normally with a cane. Skin: [place], warm and dry without rashes or lesions. Neurological: Alert and oriented x3. CN II-XII grossly intact. Speech is fluent and answers are appropriate. Strength in the right leg is greater than that in the left leg, however patient states this is baseline since having a stroke. Bilateral patellar reflexes 2+. Psychiatric: Normal mood and affect. No overt signs of depression or anxiety noted. Limitations: no limitations Course Vital Signs 07/08/18 07/08/18 18:27 21:25 Temperature 98.2 F 98.1 F Pulse Rate 66 62 Respiratory 18 17 Rate Blood Pressure 146/79 138/82 O2 Sat by Pulse 98 97 Oximetry Medical Decision Making - Medical Decision Making This is a 58-year-old male who presents to the emergency department with chief complaint of restless legs. Patient reports having bilateral leg spasms and pain since intrathecal pump was discontinued on Monday. No focal neuro deficits on exam. Patient is ambulatory with a cane. He is neurovascularly intact. Case was discussed with attending physician, Dr. Centeno. Basic labs were obtained. Chloride is noted to be 114 and CO2 18. Patient is acidotic, however on review of patient's medical record, this is consistent with previous laboratory studies. He was given pain medication in the emergency department. His vitals are stable and he is in no acute distress. He will be discharged home at this time. Recommended that he follow-up with his neurologist in the morning. Patient is in agreement with plan and voices understanding. All questions were answered. - Lab Data Result diagrams: 07/08/18 19:51 07/08/18 19:51 Lab Results 07/08/18 07/08/18 Range/Units 19:51 19:51 WBC 5.8 (3.8-10.6) k/uL RBC 4.68 (4.30-5.90) m/uL Hgb 13.8 (13.0-17.5) gm/dL Hct 42.3 (39.0-53.0) % MCV 90.3 (80.0-100.0) fL MCH 29.5 (25.0-35.0) pg MCHC 32.7 (31.0-37.0) g/dL RDW 13.3 (11.5-15.5) % Plt Count 259 (150-450) k/uL Neutrophils % 67 % Lymphocytes % 25 % Monocytes % 6 % Eosinophils % 1 % Basophils % 0 % Neutrophils # 3.9 (1.3-7.7) k/uL Lymphocytes # 1.4 (1.0-4.8) k/uL Monocytes # 0.3 (0-1.0) k/uL Eosinophils # 0.1 (0-0.7) k/uL Basophils # 0.0 (0-0.2) k/uL Sodium 144 (137-145) mmol/L Potassium 3.7 (3.5-5.1) mmol/L Chloride 114 H (98-107) mmol/L Carbon Dioxide 18 L (22-30) mmol/L Anion Gap 12 mmol/L BUN 17 (9-20) mg/dL Creatinine 0.80 (0.66-1.25) mg/dL Est GFR (CKD-EPI)AfAm >90 (>60 ml/min/1.73 sqM) Est GFR (CKD-EPI)NonAf >90 (>60 ml/min/1.73 sqM) Glucose 88 (74-99) mg/dL Calcium 10.0 (8.4-10.2) mg/dL Magnesium 2.1 (1.6-2.3) mg/dL Total Bilirubin 0.5 (0.2-1.3) mg/dL AST 40 (17-59) U/L ALT 17 L (21-72) U/L Alkaline Phosphatase 70 (38-126) U/L Total Protein 8.3 H (6.3-8.2) g/dL Albumin 4.6 (3.5-5.0) g/dL Disposition Clinical Impression: Muscle spasm of both lower legs Disposition: HOME SELF-CARE Condition: Good Instructions: Muscle Spasm (ED), Restless Legs Syndrome (ED) Additional Instructions: As discussed, please follow-up with your neurologist in the morning. Please follow up with primary care provider within 1-2 days. Return to emergency department if symptoms should worsen or any concerns arise. Is patient prescribed a controlled substance at d/c from ED?: No Referrals: Juan C Saini III, MD [Primary Care Provider] - 1-2 days Time of Disposition: 20:56
[2018-07-08 20:18] LABS: Basophils % (A) 0 %; Eosinophils # (A) 0.1 k/uL (0-0.7); Eosinophils % (A) 1 %; HCT 42.3 % (39.0-53.0); HGB 13.8 gm/dL (13.0-17.5); Lymphocytes # (A) 1.4 k/uL (1.0-4.8); Lymphocytes % (A) 25 %; MCH 29.5 pg (25.0-35.0); MCHC 32.7 g/dL (31.0-37.0); MCV 90.3 fL (80.0-100.0); Monocytes # (A) 0.3 k/uL (0-1.0); Monocytes % (A) 6 %; Neutrophils # (A) 3.9 k/uL (1.3-7.7); Neutrophils % (A) 67 %; Platelet Count 259 k/uL (150-450); RBC 4.68 m/uL (4.30-5.90); RDW 13.3 % (11.5-15.5); WBC 5.8 k/uL (3.8-10.6)
[2018-07-08 20:30] LABS: ALT 17 U/L (21-72); AST 40 U/L (17-59); Albumin 4.6 g/dL (3.5-5.0); Alkaline Phosphatase 70 U/L (38-126); Anion Gap 12 mmol/L; Blood Urea Nitrogen 17 mg/dL (9-20); Carbon Dioxide 18 mmol/L (22-30); Chloride 114 mmol/L (98-107); Glucose 88 mg/dL (74-99); Magnesium 2.1 mg/dL (1.6-2.3); Potassium 3.7 mmol/L (3.5-5.1); Sodium 144 mmol/L (137-145); Total Bilirubin 0.5 mg/dL (0.2-1.3); Total Protein 8.3 g/dL (6.3-8.2)
[2018-07-08 21:34] VITALS: BP 138/82; PULSE 62; RESP 17; TEMP 98.1
== END 2018-07-08 21:26 | disposition home or self-care (01) ==
LOC: EC 18:25
DX: M62.838 Other muscle spasm (principal); K21.9 Gastro-esophageal reflux disease without esophagitis; I10 Essential (primary) hypertension; G40.909 Epilepsy, unspecified, not intractable, without status epilepticus; F17.200 Nicotine dependence, unspecified, uncomplicated; Z86.73 Personal history of transient ischemic attack (TIA), and cerebral infarction without residual deficits; Z98.890 Other specified postprocedural states; Z98.1 Arthrodesis status; Z79.82 Long term (current) use of aspirin; Z79.02 Long term (current) use of antithrombotics/antiplatelets; Z79.51 Long term (current) use of inhaled steroids; Z79.1 Long term (current) use of non-steroidal anti-inflammatories (NSAID); Z79.899 Other long term (current) drug therapy; Z91.041 Radiographic dye allergy status; Z88.8 Allergy status to other drugs, medicaments and biological substances
CPT/HCPCS: 36415; 80053; 83735; 85025; 99284; 96374; 96376; 96361; J2270

== ENCOUNTER 2018-07-09 14:02 | Emergency (ER) | payer MEDICARE ==
[2018-07-09 14:22] VITALS: BP 128/71; PULSE 53; RESP 20
--- NOTE | 2018-07-09 14:58 | ED ---
General Adult HPI - General Chief complaint: Recheck/Abnormal Lab/Rx Stated complaint: Post surgery stitches coming out Time Seen by Provider: 07/09/18 14:36 Source: patient Mode of arrival: ambulatory Limitations: no limitations - History of Present Illness Initial comments: 58-year-old male patient presents the emergency department today for evaluation of bleeding from an abdominal incision. Patient states that on Monday he had an intrathecal pain pump removed by Dr. Sr. Removal was required because patient had developed an infection to the pump. Patient states that this afternoon when he woke from a nap he had increased bloody drainage to his dressing. Patient is concerned that he pulled the staple out. He denies any heavy lifting or stress to the wound that he knows of. Denies any fever or chills. Denies any odor coming from the wound. Denies any significant pain to the wound. Patient denies any recent rash, shortness breath, chest pain, nausea , vomiting, diarrhea, constipation, back pain, numbness, tingling, dizziness, weakness, hematuria, dysuria, urinary urgency, urinary frequency, headache, visual changes, or any other complaints. - Related Data Home Medications Medication Instructions Recorded Confirmed Aspirin 81 mg PO DAILY 12/10/14 08/08/17 Losartan Potassium 100 mg PO DAILY 12/11/14 08/08/17 Dimethyl Fumarate [Tecfidera] 240 mg PO BID 08/27/15 08/08/17 ALPRAZolam [Xanax] 0.25 mg PO DAILY PRN 09/10/15 08/08/17 Baclofen [Lioresal] 10 mg PO TID 09/10/15 08/08/17 Cholecalciferol [Vitamin D3] 2,000 unit PO DAILY 09/10/15 08/08/17 Cetirizine HCl [Zyrtec] 10 mg PO HS 08/08/17 08/08/17 Clopidogrel Bisulfate [Plavix] 75 mg PO HS 08/08/17 08/08/17 Fluticasone Nasal [place] [Flonase 2 spr EA NOSTRIL DAILY 08/08/17 08/08/17 Nasal [place]] Gabapentin 600 mg PO TID 08/08/17 08/08/17 HYDROcodone/APAP 10-325MG [[place] 1 tab PO TID PRN 08/08/17 08/08/17 10-325] Meloxicam [Mobic] 15 mg PO HS 08/08/17 08/08/17 Omeprazole 20 mg PO DAILY 08/08/17 08/08/17 Topiramate [Topamax] 200 mg PO BID 08/08/17 08/08/17 lamoTRIgine [LaMICtal] 100 mg PO BID 08/08/17 08/08/17 Previous Rx's Medication Instructions Recorded Naloxone HCl [Narcan] 4 mg NASAL ONCE PRN #2 unit 07/09/18 Allergies Allergy/AdvReac Type Severity Reaction Status Date / Time Iodinated Contrast- Oral and Allergy Anaphylaxis Verified 07/09/18 14:22 IV Dye [Iodinated Contrast Media - IV Dye] prochlorperazine edisylate Allergy Swelling Verified 07/09/18 14:22 [From Compazine] prochlorperazine maleate Allergy Swelling Verified 07/09/18 14:22 [From Compazine] Zlheddo-Zch-Imw Reductase AdvReac Unknown Verified 07/09/18 14:22 Inhibitor Review of Systems ROS Statement: Those systems with pertinent positive or pertinent negative responses have been documented in the HPI. ROS Other: All systems not noted in ROS Statement are negative. Past Medical History Past Medical History: CVA/TIA, GERD/Reflux, Hyperlipidemia, Hypertension, Neurologic Disorder, Seizure Disorder Additional Past Medical History / Comment(s): Multiple Sclerosis,numbness. rediculopathy, myopathy, back and neck problems. 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 History of Any Multi-Drug Resistant Organisms: None Reported Past Surgical History: Back Surgery, Orthopedic Surgery Additional Past Surgical History / Comment(s): right foot surgery - 40 years ago january 2015- surgery fusion to cervical, and replaced disc neck, Past Anesthesia/Blood Transfusion Reactions: No Reported Reaction Past Psychological History: No Psychological Hx Reported Smoking Status: Current every day smoker Past Alcohol Use History: None Reported Past Drug Use History: None Reported - Past Family History Mother Family Medical History: No Reported History General Exam Limitations: no limitations General appearance: alert, in no apparent distress, other (This is a well- developed, well-nourished adult male patient in no acute distress. Vital signs upon presentation are temperature 98.3F, pulse 63, respirations 20, blood pressure 128/71, pulse ox 97% on room air.) Eye exam: Present: normal appearance Respiratory exam: Present: normal lung sounds bilaterally. Absent: respiratory distress, wheezes, rales, rhonchi, stridor Cardiovascular Exam: Present: regular rate, normal rhythm, normal heart sounds. Absent: systolic murmur, diastolic murmur, rubs, gallop, clicks GI/Abdominal exam: Present: soft, normal bowel sounds, other (Patient has horizontal left lower quadrant incision that is well approximated with abril. There is presence of serosanguineous drainage to the left lateral aspect of the incision. All abril are intact. There is no purulent fluid noted. No surrounding erythema.). Absent: distended, tenderness, guarding, rebound, rigid Neurological exam: Present: alert, oriented X3, CN II-XII intact Psychiatric exam: Present: normal affect, normal mood Skin exam: Present: warm, dry, intact, normal color. Absent: rash Course Vital Signs 07/09/18 07/09/18 14:20 15:20 Temperature 98.3 F 99.2 F Pulse Rate 53 L Respiratory 20 Rate Blood Pressure 128/71 O2 Sat by Pulse 97 Oximetry Medical Decision Making - Medical Decision Making 58-year-old male patient presented to the emergency department today for evaluation of bleeding abdominal incision. Physical examination did reveal a well approximated horizontal left lower quadrant incision. All abril are intact. There is presence of serosanguineous drainage from the left lateral aspect of the incision. No evidence of purulent fluid or surrounding erythema. No signs of infection. Patient is not having pain to the area. I did cleanse the area and redressed the incision. We did discuss that this is most likely from a seroma that is leaking. Patient is currently taking Keflex. He is instructed follow up with Dr. Sr for recheck of the wound in 1-2 days. They're educated regarding wound care and dressing changes. Return parameters were discussed in detail. He verbalizes understanding and agreed with this plan. Also patient was started on 60 mg of morphine by his physician for pain relief. The pharmacist recommended to the patient he should obtain a Narcan prescription to have at home just in case. I did provide this prescription for them. Disposition Clinical Impression: Seroma after procedure Disposition: HOME SELF-CARE Condition: Good Instructions: Naloxone (Into the nose), Acute Wound Care (ED), Seroma (DC) Additional Instructions: Keep wound clean and dry. Change dressing as needed if it becomes saturated. Follow-up with Dr. Sr for recheck of the wound. Return here immediately for any new, worsening, or concerning symptoms. Prescriptions: Naloxone HCl [Narcan] 4 mg NASAL ONCE PRN #2 unit PRN Reason: Respirations below 12 Is patient prescribed a controlled substance at d/c from ED?: No Referrals: Juan C Saini III, MD [Primary Care Provider] - 1-2 days Time of Disposition: 14:57
[2018-07-09 15:22] VITALS: TEMP 99.2
== END 2018-07-09 15:20 | disposition home or self-care (01) ==
LOC: EC 14:02
DX: K91.873 Postprocedural seroma of a digestive system organ or structure following other procedure (principal); K21.9 Gastro-esophageal reflux disease without esophagitis; E78.5 Hyperlipidemia, unspecified; I10 Essential (primary) hypertension; G40.909 Epilepsy, unspecified, not intractable, without status epilepticus; G35 Multiple sclerosis; G72.9 Myopathy, unspecified; F17.200 Nicotine dependence, unspecified, uncomplicated; Z86.73 Personal history of transient ischemic attack (TIA), and cerebral infarction without residual deficits; Z98.1 Arthrodesis status; Z98.890 Other specified postprocedural states; Z79.02 Long term (current) use of antithrombotics/antiplatelets; Z79.1 Long term (current) use of non-steroidal anti-inflammatories (NSAID); Z79.82 Long term (current) use of aspirin; Z79.899 Other long term (current) drug therapy; Z88.8 Allergy status to other drugs, medicaments and biological substances; Z91.041 Radiographic dye allergy status; Y83.8 Other surgical procedures as the cause of abnormal reaction of the patient, or of later complication, without mention of misadventure at the time of the procedure
CPT/HCPCS: 99283

== ENCOUNTER → 2019-05-09 | Outpatient (CLI) | payer MEDICARE ==
[2019-05-09 12:33] LABS: Basophils % (A) 1 %; Eosinophils # (A) 0.3 k/uL (0-0.7); Eosinophils % (A) 5 %; HCT 39.6 % (39.0-53.0); HGB 12.9 gm/dL (13.0-17.5); Lymphocytes # (A) 1.2 k/uL (1.0-4.8); Lymphocytes % (A) 24 %; MCH 31.1 pg (25.0-35.0); MCHC 32.6 g/dL (31.0-37.0); MCV 95.3 fL (80.0-100.0); Mean Platelet Volume 7.7; Monocytes # (A) 0.3 k/uL (0-1.0); Monocytes % (A) 6 %; Neutrophils % (A) 62 %; Platelet Count 242 k/uL (150-450); RBC 4.15 m/uL (4.30-5.90); RDW 14.8 % (11.5-15.5); WBC 4.8 k/uL (3.8-10.6)
[2019-05-09 19:19] LABS: African American GFR (CKD) 94.4 (60.0-200.0); Albumin 4.5 g/dL (3.80-4.90); Albumin/Globulin Ratio 2.05 (1.60-3.17); Anion Gap 7.3 mmol/L (4.00-12.00); Calcium 8.9 mg/dL (8.7-10.3); Carbon Dioxide 23.7 mmol/L (21.6-31.8); Globulin 2.2 g/dL (1.6-3.3); Potassium 4.6 mmol/L (3.5-5.5); Total Bilirubin 0.3 mg/dL (0.2-1.2); Total Protein 6.7 g/dL (6.2-8.2)
== END | disposition home or self-care (01) ==
LOC: LABWHC1 11:15
PROVIDERS: ATTEND Psychiatry & Neurology Neurology
DX: G35 Multiple sclerosis (principal)
CPT/HCPCS: 36415; 80053; 85025

== ENCOUNTER → 2019-08-27 | Outpatient (CLI) | payer MEDICARE ==
[2019-08-27 21:01] LABS: Chol/HDL Ratio 4.39; LDL Cholesterol,Calculated 86.6 mg/dL (0.0-131.0); VLDL Calculation 25.4 mg/dL (5.00-40.00)
== END | disposition home or self-care (01) ==
LOC: LABWHC1 08:29
PROVIDERS: ATTEND Psychiatry & Neurology Neurology
DX: E78.2 Mixed hyperlipidemia (principal); Z12.5 Encounter for screening for malignant neoplasm of prostate; G35 Multiple sclerosis
CPT/HCPCS: 36415; 80061; 86480

== ENCOUNTER → 2019-09-02 | Outpatient (CLI) | payer MEDICARE | END | disposition home or self-care (01) | LOC: LABWHC1 15:11 | PROVIDERS: ATTEND Psychiatry & Neurology Neurology | DX: G35 Multiple sclerosis (principal) | CPT/HCPCS: 36415; 86480 ==

== ENCOUNTER 2019-09-20 09:28 | Emergency (ER) | payer MEDICARE ==
[2019-09-20 09:34] VITALS: BP 153/77; PULSE 56; RESP 18; TEMP 98.2
--- NOTE | 2019-09-20 09:52 | ED ---
General Adult HPI - General Chief complaint: Extremity Injury, Lower Stated complaint: lt ankle pain Time Seen by Provider: 09/20/19 09:30 Source: patient, RN notes reviewed, old records reviewed Mode of arrival: ambulatory - History of Present Illness Initial comments: This is a 5-year-old male who presents emergency Department complaining of left ankle pain. Patient states he went to step up on a step stool and missed and twisted his ankle. Patient complains of mostly lateral left ankle pain but he also has some medial left ankle pain. Patient denies any knee pain or hip pain. Patient denies any foot pain. Patient denies any other injury at this time. - Related Data Home Medications Medication Instructions Recorded Confirmed Aspirin 81 mg PO DAILY 12/10/14 08/08/17 Losartan Potassium 100 mg PO DAILY 12/11/14 08/08/17 Dimethyl Fumarate [Tecfidera] 240 mg PO BID 08/27/15 08/08/17 ALPRAZolam [Xanax] 0.25 mg PO DAILY PRN 09/10/15 08/08/17 Baclofen [Lioresal] 10 mg PO TID 09/10/15 08/08/17 Cholecalciferol [Vitamin D3] 2,000 unit PO DAILY 09/10/15 08/08/17 Cetirizine HCl [Zyrtec] 10 mg PO HS 08/08/17 08/08/17 Clopidogrel Bisulfate [Plavix] 75 mg PO HS 08/08/17 08/08/17 Fluticasone Nasal [place] [Flonase 2 spr EA NOSTRIL DAILY 08/08/17 08/08/17 Nasal [place]] Gabapentin 600 mg PO TID 08/08/17 08/08/17 HYDROcodone/APAP 10-325MG [[place] 1 tab PO TID PRN 08/08/17 08/08/17 10-325] Meloxicam [Mobic] 15 mg PO HS 08/08/17 08/08/17 Omeprazole 20 mg PO DAILY 08/08/17 08/08/17 Topiramate [Topamax] 200 mg PO BID 08/08/17 08/08/17 lamoTRIgine [LaMICtal] 100 mg PO BID 08/08/17 08/08/17 Previous Rx's Medication Instructions Recorded Naloxone HCl [Narcan] 4 mg NASAL ONCE PRN #2 unit 07/09/18 Allergies Allergy/AdvReac Type Severity Reaction Status Date / Time Iodinated Contrast Media Allergy Anaphylaxis Verified 09/20/19 09:34 [Iodinated Contrast Media - IV Dye] prochlorperazine edisylate Allergy Swelling Verified 09/20/19 09:34 [From Compazine] prochlorperazine maleate Allergy Swelling Verified 09/20/19 09:34 [From Compazine] Vfc[place]-Nqn-Qnv Reductase AdvReac Unknown Verified 09/20/19 09:34 Inhibitor Review of Systems ROS Statement: Those systems with pertinent positive or pertinent negative responses have been documented in the HPI. ROS Other: All systems not noted in ROS Statement are negative. Past Medical History Past Medical History: CVA/TIA, GERD/Reflux, Hyperlipidemia, Hypertension, Neurologic Disorder, Seizure Disorder Additional Past Medical History / Comment(s): Multiple Sclerosis,numbness. rediculopathy, myopathy, back and neck problems. 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 History of Any Multi-Drug Resistant Organisms: None Reported Past Surgical History: Back Surgery, Orthopedic Surgery Additional Past Surgical History / Comment(s): right foot surgery - 40 years ago january 2015- surgery fusion to cervical, and replaced disc neck, Past Anesthesia/Blood Transfusion Reactions: No Reported Reaction Past Psychological History: No Psychological Hx Reported Smoking Status: Current every day smoker Past Alcohol Use History: None Reported Past Drug Use History: None Reported - Past Family History Mother Family Medical History: No Reported History General Exam - General Exam Comments Initial Comments: GENERAL Patient is well-developed and well-nourished. Patient is in mild distress. EYES Patient's pupils are equal and round. Extraocular motion is intact SKIN Unremarkable NEURO The patient is alert and oriented 3 PYSCH Patient has normal interpersonal interactions. MUSCULOSKELETAL Ankle is swollen on the lateral malleolus. Patient also is tenderness in that area. Patient has slight tenderness in the medial malleolus. Course Vital Signs 09/20/19 09:31 Temperature 98.2 F Pulse Rate 56 L Respiratory 18 Rate Blood Pressure 153/77 O2 Sat by Pulse 97 Oximetry Procedures - Orthopedic Splinting/Casting Injury #1 Side: left Lower Extremity Injury Location: short leg Lower Extremity Immobilizer: posterior splint Medical Decision Making - Medical Decision Making X-ray shows a medial malleolus fracture. I splinted the patient's leg and he will follow-up with orthopedic. Disposition Clinical Impression: Fractured medial malleolus Disposition: HOME SELF-CARE Instructions (If sedation given, give patient instructions): Ankle Fracture (ED) Is patient prescribed a controlled substance at d/c from ED?: No Referrals: Bala Craft DO [Medical Doctor] - 1-2 days Time of Disposition: 10:46
--- NOTE | 2019-09-20 10:20 | XR ---
EXAMINATION TYPE: XR ankle complete LT DATE OF EXAM: 09/20/2019 CLINICAL HISTORY: Rolling injury with pain. TECHNIQUE: Frontal, lateral and oblique images of the left ankle are obtained. COMPARISON: None. FINDINGS: There is well-defined bony fragmentation from medial malleolus without adjacent soft tissu e swelling favoring old injury. There is [id number] soft tissue swelling over the lateral malle olus without acute fracture. Posterior malleolus is intact. Ankle mortise is preserved. Superior and inferior calcaneal spurring incidentally noted. IMPRESSION: Soft tissue swelling over lateral malleolus without acute fracture.
== END 2019-09-20 10:50 | disposition home or self-care (01) ==
LOC: EC 09:28
DX: S82.52XA Displaced fracture of medial malleolus of left tibia, initial encounter for closed fracture (principal); K21.9 Gastro-esophageal reflux disease without esophagitis; I10 Essential (primary) hypertension; G40.909 Epilepsy, unspecified, not intractable, without status epilepticus; G35 Multiple sclerosis; F17.200 Nicotine dependence, unspecified, uncomplicated; Z88.8 Allergy status to other drugs, medicaments and biological substances; Z91.041 Radiographic dye allergy status; Z79.1 Long term (current) use of non-steroidal anti-inflammatories (NSAID); Z79.02 Long term (current) use of antithrombotics/antiplatelets; Z79.51 Long term (current) use of inhaled steroids; Z79.82 Long term (current) use of aspirin; Z79.899 Other long term (current) drug therapy; Z86.73 Personal history of transient ischemic attack (TIA), and cerebral infarction without residual deficits; X50.1XXA Overexertion from prolonged static or awkward postures, initial encounter; Y93.89 Activity, other specified
CPT/HCPCS: 29515; 99284

== ENCOUNTER 2019-11-12 08:57 | Day surgery (SDC) | payer MEDICARE ==
[2019-11-11 09:28] VITALS: BMI 32.3
[~2019-11-12 08:57] MED LIST: LACTATED RINGERS 1,000 ML IV SCH
[2019-11-12] MEDS: CYCLOPENTOLATE 1% OPHTH SOLN 2 ML BTL OP ONE ×3 (10:00→10:18)
[2019-11-12 10:03] VITALS: TEMP 97
[2019-11-12] MEDS: PHENYLEPHRINE 10% OPHTH DROPS 5 ML BTL OP ONE ×3 (10:03→10:21)
[2019-11-12] MEDS: KETOROLAC 0.5% OPHTH DROPS 5 ML BTL OP ONE ×3 (10:06→10:24)
[2019-11-12] MEDS ORDERED: fentaNYL (PF) 50 MCG/ML 2 ML AMP ONE (10:39)
[2019-11-12] MEDS ORDERED: PROPOFOL 10 MG/ML 20 ML VIAL IV ONE (10:39)
[2019-11-12] MEDS ORDERED: MIDAZOLAM 2 MG/2 ML VIAL ONE (10:39)
[2019-11-12] MEDS ORDERED: HYALURONATE SODIUM INTRAOCULAR 1 EACH SYRINGE (10MG/ML) INTRAOCULA ONE (10:43)
[2019-11-12] MEDS ORDERED: BALANCED SALT IRRIG SOLN COMB2 15 ML IRRIG.SOLN IRRIGATION ONE (10:43)
[2019-11-12] MEDS ORDERED: EPINEPHrine (PF) 0.5 ML in BALANCED SALT IRRIG SOLN COMB2 500 ML IRRIGATION ONE (10:47)
--- NOTE | 2019-11-12 11:11 | P.OP ---
Date of Procedure: 11/12/19 Procedure(s) Performed: PREOPERATIVE DIAGNOSIS: Cataract, left eye. POSTOPERATIVE DIAGNOSIS: Cataract, left eye. OPERATION: Phacoemulsification of cataract, intraocular lens placement, left eye. DESCRIPTION OF PROCEDURE: The patient was taken to the operating room. Intravenous Propofol was given so as to bring about sedation. The following mixture was given for local anesthesia: 5 mL of 2% lidocaine, 5 mL of 0.75% Marcaine, and 1 mL of Wydase. Approximately 4 mL was injected in the retrobulbar space of the surgical eye. Additional 1 mL was then directed to the temporal area of the surgical eye. This was performed to allow adequate neurological block of the facial muscles. The patient was revived. The patient was prepped and draped in the usual sterile manner for the operative eye. A lid speculum was put into position. The conjunctiva was resected back from the limbus in the 12 o'clock position. Bleeding was controlled with electrocautery. A #69 blade was then used and a half-thickness scleral incision approximately 1-mm posterior to the limbus was made on bare sclera. This was shelved in the clear cornea using a crescent knife. Next a 15-degree blade was used to make a stab incision at the 3 o'clock position at the corneolimbal interface. A keratome blade was then used and the superior wound was extended into the anterior chamber. Viscoelastic was injected into the anterior chamber to maintain its form. A cystotome was used and a continuous anterior capsulot roscoe was made. Hydrodissection of the lens cortex using a blunt cannula and BSS was performed. A phaco probe was then introduced and a groove extending from 12 to 6 o'clock in the lens was created. A Fortino wand was used through the stab incision and used to perform a divide and conquer dismantling of the cataract. An irrigation aspiration probe was utilized and any residual cortex was removed from the eye. Again, viscoelastic was injected into the anterior chamber. An Taj posterior chamber lens implant was placed in a delivery cartridge and injected into the anterior chamber. A Sinskey hook was utilized to spin the lens into position within the capsular bag. The irrigation and aspiration probe was again introduced and any residual viscoelastic was removed from the eye. BSS was injected via blunt canula into the limbal stab incision and the anterior chamber was re-inflated. The conjunctiva was reapproximated using electrocautery. One drop of 0.25% Timoptic was placed over the corneal along with an antibiotic ophthalmic ointment. Two sterile patches and a Mtz eye shield were taped into position. The patient was transported to the recovery room in stable condition. Pathology: none sent Condition: stable Disposition: same day
[2019-11-12 11:38] VITALS: BP 101/56; PULSE 52; RESP 16
[2019-11-12] MEDS ORDERED: TIMOLOL 0.5% OPHTH DROPS 5 ML BTL OP ONE (23:00)
[2019-11-12] MEDS ORDERED: BUPIVACAINE (PF) 0.75% 5 ML, HYALURONIDASE, HUMAN RECOMB 150 UNIT, LIDOCAINE 2% (PF) 10... MISCELLANE ONE ×3 (23:00)
[2019-11-12] MEDS ORDERED: TOBRA-DEXAMET 0.3-0.1% OPHTH OINT 3.5 GM TUBE OPHTHALMIC ONE (23:00)
== END 2019-11-12 11:41 | disposition home or self-care (01) ==
LOC: OR 08:57
PROVIDERS: ATTEND Ophthalmology
DX: H25.12 Age-related nuclear cataract, left eye (principal); E11.36 Type 2 diabetes mellitus with diabetic cataract; I10 Essential (primary) hypertension; E78.5 Hyperlipidemia, unspecified; F17.210 Nicotine dependence, cigarettes, uncomplicated; R56.9 Unspecified convulsions; G35 Multiple sclerosis; K21.9 Gastro-esophageal reflux disease without esophagitis; M19.90 Unspecified osteoarthritis, unspecified site; Z86.73 Personal history of transient ischemic attack (TIA), and cerebral infarction without residual deficits; Z79.899 Other long term (current) drug therapy; Z88.8 Allergy status to other drugs, medicaments and biological substances; Z91.041 Radiographic dye allergy status; Z98.1 Arthrodesis status
CPT/HCPCS: 66984; V2632; J2250; J3470; J2001; J0171; J3010; J2704

== ENCOUNTER 2019-12-10 06:38 | Day surgery (SDC) | payer MEDICARE ==
[2019-12-09 11:28] VITALS: BMI 32.3
[~2019-12-10 06:38] MED LIST changes: +TOBRA-DEXAMET 0.3-0.1% OPHTH OINT 3.5 GM TUBE OPHTHALMIC ONE
[2019-12-10] MEDS: CYCLOPENTOLATE 1% OPHTH SOLN 2 ML BTL OP ONE ×3 (07:03→07:22)
[2019-12-10] MEDS: PHENYLEPHRINE 10% OPHTH DROPS 5 ML BTL OP ONE ×3 (07:07→07:25)
[2019-12-10] MEDS: KETOROLAC 0.5% OPHTH DROPS 5 ML BTL OP ONE ×3 (07:10→07:27)
[2019-12-10] MEDS ORDERED: LIDOCAINE 1% (10MG/ML) FOR IV START SQ ONE (07:15)
[2019-12-10 07:23] VITALS: RESP 16; TEMP 98.1
[2019-12-10] MEDS ORDERED: MIDAZOLAM 2 MG/2 ML VIAL ONE (07:33)
[2019-12-10] MEDS ORDERED: PROPOFOL 10 MG/ML 20 ML VIAL IV ONE (07:33)
[2019-12-10] MEDS ORDERED: fentaNYL (PF) 50 MCG/ML 2 ML AMP ONE (07:33)
[2019-12-10] MEDS ORDERED: BALANCED SALT IRRIG SOLN COMB2 15 ML IRRIG.SOLN INTRAOCULA ONE (07:45)
[2019-12-10] MEDS ORDERED: HYALURONATE SODIUM INTRAOCULAR 1 EACH SYRINGE (10MG/ML) INTRAOCULA ONE (07:45)
[2019-12-10] MEDS ORDERED: EPINEPHrine (PF) 0.5 ML in BALANCED SALT IRRIG SOLN COMB2 500 ML IRRIGATION ONE (07:47)
--- NOTE | 2019-12-10 08:04 | P.OP ---
Date of Procedure: 12/10/19 Procedure(s) Performed: PREOPERATIVE DIAGNOSIS: Cataract, right eye. POSTOPERATIVE DIAGNOSIS: Cataract, right eye. OPERATION: Phacoemulsification of cataract, intraocular lens placement, right eye. DESCRIPTION OF PROCEDURE: The patient was taken to the operating room. Intravenous Propofol was given so as to bring about sedation. The following mixture was given for local anesthesia: 5 mL of 2% lidocaine, 5 mL of 0.75% Marcaine, and 1 mL of Wydase. Approximately 4 mL was injected in the retrobu lbar space of the surgical eye. Additional 1 mL was then directed to the temporal area of the surgical eye. This was performed to allow adequate neurological block of the facial muscles. The patient was revived. The patient was prepped and draped in the usual sterile manner for the operative eye. A lid speculum was put into position. The conjunctiva was resected back from the limbus in the 12 o'clock position. Bleeding was controlled with electrocautery. A #69 blade was then used and a half-thickness scleral incision approximately 1-mm posterior to the limbus was made on bare sclera. This was shelved in the clear cornea using a crescent knife. Next a 15-degree blade was used to make a stab incision at the 3 o'clock position at the corneolimbal interface. A keratome blade was then used and the superior wound was extended into the anterior chamber. Viscoelastic was injected into the anterior chamber to maintain its form. A cystotome was used and a continuous anterior capsu lotomy was made. Hydrodissection of the lens cortex using a blunt cannula and BSS was performed. A phaco probe was then introduced and a groove extending from 12 to 6 o'clock in the lens was created. A Fortino wand was used through the stab incision and used to perform a divide and conquer dismantling of the cataract. An irrigation aspiration probe was utilized and any residual cortex was removed from the eye. Again, viscoelastic was injected into the anterior chamber. An Taj posterior chamber lens implant was placed in a delivery cartridge and injected into the anterior chamber. A Sinskey hook was utilized to spin the lens into position within the capsular bag. The irrigation and aspiration probe was again introduced and any residual viscoelastic was removed from the eye. BSS was injected via blunt canula into the limbal stab incision and the anterior chamber was re-inflated. The conjunctiva was reapproximated using electrocautery. One drop of 0.25% Timoptic was placed over the corneal along with an antibiotic ophthalmic ointment. Two sterile patches and a Mtz eye shield were taped into position. The patient was transported to the recovery room in stable condition. Pathology: none sent Condition: stable Disposition: same day
[2019-12-10 08:23] VITALS: BP 102/64; PULSE 45
[2019-12-10] MEDS ORDERED: TIMOLOL 0.5% OPHTH DROPS 5 ML BTL OP ONE (23:00)
[2019-12-10] MEDS ORDERED: BUPIVACAINE (PF) 0.75% 5 ML, HYALURONIDASE, HUMAN RECOMB 150 UNIT, LIDOCAINE 2% (PF) 10... MISCELLANE ONE ×3 (23:00)
[2019-12-10] MEDS ORDERED: GENTAMICIN/PREDNISOL AC OPHTH OINT 3.5GM OPHTHALMIC ONE (23:00)
== END 2019-12-10 08:34 | disposition home or self-care (01) ==
LOC: OR 06:38
PROVIDERS: ATTEND Ophthalmology
DX: H25.11 Age-related nuclear cataract, right eye (principal); I10 Essential (primary) hypertension; M19.90 Unspecified osteoarthritis, unspecified site; E78.5 Hyperlipidemia, unspecified; K21.9 Gastro-esophageal reflux disease without esophagitis; G89.4 Chronic pain syndrome; F41.9 Anxiety disorder, unspecified; F17.210 Nicotine dependence, cigarettes, uncomplicated; Z98.1 Arthrodesis status; Z91.041 Radiographic dye allergy status; Z88.8 Allergy status to other drugs, medicaments and biological substances; Z86.73 Personal history of transient ischemic attack (TIA), and cerebral infarction without residual deficits; Z79.02 Long term (current) use of antithrombotics/antiplatelets; Z79.899 Other long term (current) drug therapy; Z79.891 Long term (current) use of opiate analgesic; Z98.42 Cataract extraction status, left eye; Z83.3 Family history of diabetes mellitus; Z96.1 Presence of intraocular lens
CPT/HCPCS: 66984; V2632; J2250; J3470; J2001; J0171; J3010; J2704

== ENCOUNTER → 2020-07-20 | Outpatient (CLI) | payer MEDICARE ==
--- NOTE | 2020-07-20 16:41 | US ---
EXAMINATION TYPE: US abdomen complete DATE OF EXAM: 07/20/2020 COMPARISON: CT CLINICAL HISTORY: R10.11 RUQ pain. Pt states right side ABD pain EXAM MEASUREMENTS: Liver Length: 17.9 cm Gallbladder Wall: 0.2 cm CBD: 0.5 cm Spleen: 11.8 cm Right Kidney: 10.5 x 5.6 x 5.2 cm Left Kidney: 10.7 x 5.5 x 4.9 cm There is no ascites. Pancreas: Head wnl, body and tail obscured by overlying bowel gas Liver: Upper limits of normal for size Gallbladder: Lumen clear, appeared distended Evidence for sonographic Rodríguez's sign: No CBD: wnl Spleen: Granulomas scattered throughout Right Kidney: wnl Left Kidney: Cyst upper pole= 1.3 cm Upper IVC: wnl Abd Aorta: Proximal portion gassed out, mid and distal wnl The liver is homogenous. The intrahepatic portion of the IVC and proximal abdominal aorta are within normal limits. There is no evidence of cholelithiasis. Common bile duct is unremarkable. The visu alized portions of the pancreas are homogenous. The spleen is showing echogenic foci. Kidneys are s ymmetric and free of hydronephrosis. No renal lesions are seen. IMPRESSION: There is some limitations the exam. No significant abnormality is evident. Probable granu enrike within the spleen. Small simple cyst present within the left kidney.
== END | disposition home or self-care (01) ==
LOC: RADUSWWP 10:49
PROVIDERS: ATTEND Family Medicine
DX: N28.1 Cyst of kidney, acquired (principal)
CPT/HCPCS: 76700

== ENCOUNTER 2021-06-09 06:12 | Emergency (ER) | payer MEDICARE ==
[2021-06-09 06:18] VITALS: RESP 18; TEMP 98.1
--- NOTE | 2021-06-09 06:31 | ED ---
General Adult HPI - General Chief complaint: Extremity Injury, Upper Stated complaint: Right Shoulder Injury Time Seen by Provider: 06/09/21 06:20 Source: patient, RN notes reviewed Mode of arrival: ambulatory Limitations: no limitations - History of Present Illness Initial comments: This a 61-year-old male presents emergency Department with chief complaint of trip and fall. Patient fell onto his right shoulder did strike his head. Patient won't loss conscious has no point a headache but is on Plavix. Denies any neck pain. Patient chronic back pain out of the usual. He states his primary complaint is right shoulder pain. Patient denies any other complaints currently. Denies nausea vomiting chest pain shortness of breath no syncopal episode. - Related Data Home Medications Medication Instructions Recorded Confirmed Dimethyl Fumarate [Tecfidera] 240 mg PO BID 08/27/15 12/09/19 ALPRAZolam [Xanax] 0.25 mg PO DAILY PRN 09/10/15 12/09/19 Baclofen [Lioresal] 20 mg PO TID 09/10/15 12/09/19 Cholecalciferol [Vitamin D3] 2,000 unit PO DAILY 09/10/15 12/09/19 Clopidogrel Bisulfate [Plavix] 75 mg PO HS 08/08/17 12/09/19 Gabapentin 600 mg PO QID 08/08/17 12/09/19 lamoTRIgine [LaMICtal] 100 mg PO DAILY 08/08/17 12/09/19 Losartan Potassium 50 mg PO DAILY 11/11/19 12/09/19 Morphine Pump 1 dose INJ CONTINUOUS 11/11/19 12/09/19 Topiramate [Topiramate ER] 150 mg PO BID 11/11/19 12/09/19 lamoTRIgine [LaMICtal] 25 mg PO BID 11/11/19 12/09/19 Baclofen Pump 1 applicate IJ CONTINUOUS 12/09/19 12/09/19 Allergies Allergy/AdvReac Type Severity Reaction Status Date / Time Iodinated Contrast Media Allergy Anaphylaxis Verified 06/09/21 06:18 [Iodinated Contrast Media - IV Dye] prochlorperazine edisylate Allergy Swelling Verified 06/09/21 06:18 [From Compazine] prochlorperazine maleate Allergy Swelling Verified 06/09/21 06:18 [From Compazine] Eumzyja-Zkg-Viz Reductase AdvReac MYOPATHY Verified 06/09/21 06:18 Inhibitor Review of Systems ROS Statement: Those systems with pertinent positive or pertinent negative responses have been documented in the HPI. ROS Other: All systems not noted in ROS Statement are negative. Past Medical History Past Medical History: CVA/TIA, GERD/Reflux, Hyperlipidemia, Hypertension, Neurologic Disorder, Seizure Disorder Additional Past Medical History / Comment(s): Multiple Sclerosis,numbness. rAdiculopathy, myopathy, back and neck problems. 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 LAST SEIZURE OVER 1 YEAR AGO. BILAT CATARACTS History of Any Multi-Drug Resistant Organisms: None Reported Past Surgical History: Back Surgery, Orthopedic Surgery Additional Past Surgical History / Comment(s): right foot surgery - 40 years ago january 2015- surgery fusion to cervical, and replaced disc neck, Past Anesthesia/Blood Transfusion Reactions: No Reported Reaction Past Psychological History: No Psychological Hx Reported Smoking Status: Current every day smoker Past Alcohol Use History: None Reported Past Drug Use History: None Reported - Past Family History Mother Family Medical History: No Reported History General Exam Limitations: no limitations General appearance: alert, in no apparent distress Head exam: Present: atraumatic, normocephalic, normal inspection Eye exam: Present: normal appearance, PERRL, EOMI. Absent: scleral icterus, conjunctival injection, periorbital swelling ENT exam: Present: normal exam, mucous membranes moist Neck exam: Present: normal inspection, full ROM. Absent: tenderness, meningismus, lymphadenopathy Respiratory exam: Present: normal lung sounds bilaterally. Absent: respiratory distress, wheezes, rales, rhonchi, stridor Cardiovascular Exam: Present: regular rate, normal rhythm, normal heart sounds. Absent: systolic murmur, diastolic murmur, rubs, gallop, clicks Extremities exam: Present: other (Right shoulder there is some elevation over the AC joint, pain with range of motion, very limited range of motion neurovascular intact no distal humeral tenderness) Course Vital Signs 06/09/21 06:16 Temperature 98.1 F Pulse Rate 60 Respiratory 18 Rate Blood Pressure 135/76 O2 Sat by Pulse 99 Oximetry Medical Decision Making - Medical Decision Making X-ray shows evidence of AC dislocation/separation CT of brain is unremarkable we discharged in stable condition return parameters were discussed patient with follow-up with [facility] Disposition Clinical Impression: Fall, Separation of right acromioclavicular joint, Head contusion Disposition: HOME SELF-CARE Condition: Stable Instructions (If sedation given, give patient instructions): Acromioclavicular Separation (ED) Additional Instructions: Please return to the Emergency Department if symptoms worsen or any other concerns. Is patient prescribed a controlled substance at d/c from ED?: No Referrals: Juan C Saini III, MD [Primary Care Provider] - 1-2 days Pk Rodríguez MD [STAFF PHYSICIAN] - 1-2 days
--- NOTE | 2021-06-09 06:45 | XR ---
EXAMINATION TYPE: XR shoulder complete RT DATE OF EXAM: 06/09/2021 CLINICAL HISTORY: Fall injury with pain TECHNIQUE: Three views of the right shoulder are obtained. COMPARISON: Chest x-ray April 08, 2015. FINDINGS: There is superior displacement of distal clavicle relative to the acromion without fracture measured 1.7 cm. There is moderate to severe narrowing at the glenohumeral joint with mild inferior spurring. There is loss of rounded contour to the superior lateral humeral head or Hill-Sachs type de formity. No acute ossific fragment. The visualized ribs are intact . IMPRESSION: There is acute AC joint dislocation without fracture.
--- NOTE | 2021-06-09 07:18 | CT ---
EXAMINATION TYPE: CT brain wo con DATE OF EXAM: 06/09/2021 HISTORY: Fall, pain on plavix CT DLP: 1158.4 mGycm. Automated Exposure Control for Dose Reduction was Utilized. TECHNIQUE: CT scan of the head is performed without contrast. COMPARISON: CT brain April 08, 2015. MRI brain August 21, 2017 FINDINGS: There is no acute intracranial hemorrhage or midline shift identified. There is mild diff use ventricular and sulcal prominence consistent with diffuse age-related cerebral atrophy. Mild low- attenuation scattered throughout the left deep white matter. Tiny right frontal acute scalp hematoma suspected axial image 29. The calvarium is intact The globes are intact and the visualized sinuses a re clear. IMPRESSION: No acute intracranial hemorrhage or midline shift.
[2021-06-09 07:36] VITALS: BP 129/68; PULSE 63
== END 2021-06-09 07:37 | disposition home or self-care (01) ==
LOC: EC 06:12
DX: S43.101A Unspecified dislocation of right acromioclavicular joint, initial encounter (principal); S00.93XA Contusion of unspecified part of head, initial encounter; M54.9 Dorsalgia, unspecified; G40.909 Epilepsy, unspecified, not intractable, without status epilepticus; K21.9 Gastro-esophageal reflux disease without esophagitis; I10 Essential (primary) hypertension; F17.200 Nicotine dependence, unspecified, uncomplicated; Z79.899 Other long term (current) drug therapy; Z86.73 Personal history of transient ischemic attack (TIA), and cerebral infarction without residual deficits; Z88.8 Allergy status to other drugs, medicaments and biological substances; Z87.39 Personal history of other diseases of the musculoskeletal system and connective tissue; W01.0XXA Fall on same level from slipping, tripping and stumbling without subsequent striking against object, initial encounter
CPT/HCPCS: 70450; 99284

== ENCOUNTER → 2022-10-10 | Outpatient (CLI) | payer MEDICARE ==
--- NOTE | 2022-10-10 12:18 | CT ---
EXAMINATION TYPE: CT thoracic spine wo con DATE OF EXAM: 10/10/2022 COMPARISON: HISTORY: Scoliosis CT DLP: 610.60 mGycm Automated exposure control for dose reduction was used. Contrast: None Technique: Axial images 2 mm thick sections. Reconstructed images in the coronal and sagittal planes FINDINGS: Note is made degenerative disc changes C6-7. Spondylosis within the lower cervical spine is evident. Thoracic stimulator lead is evident. Vertebral body heights are preserved. Alignment appears preserved. Some mild Schmorl's node formation at the T9-10 level is present. Anterior vertebral body spurring and spondylosis is evident through t he thoracic spine mild diffuse disc space narrowing is present throughout the thoracic spine. No acut e osseous abnormality is evident. Endplate spurring at T2 is moderate anterior thecal sac compression in the left and right paracentral regions. No AP spinal canal stenosis present. Mild scoliosis is present with the convexity to the right. IMPRESSION: 1. DEGENERATIVE DISC CHANGES THROUGH THE THORACIC SPINE.
--- NOTE | 2022-10-10 12:26 | XR ---
EXAMINATION TYPE: XR scoliosis survey DATE OF EXAM: 10/10/2022 COMPARISON: 02/26/2014 HISTORY: Scoliosis TECHNIQUE: AP and lateral views of the thoracic and lumbar spine were obtained in the upright positio n. FINDINGS: There is a severe scoliosis within the lumbar spine with side bending towards the right. As measured between L4 and T12 there is 48 degrees scoliosis towards the right centered at L2-3. Little compensation within the thoracic spine is evident. Findings have developed from 2013. IMPRESSION: 1. Severe right-sided sidebending lumbar spine. Scoliosis measures 48 degrees between T12 and L4
--- NOTE | 2022-10-10 12:39 | CT ---
EXAMINATION TYPE: CT lumbar spine wo con DATE OF EXAM: 10/10/2022 COMPARISON: HISTORY: Scoliosis CT DLP: 578.60 mGycm CONTRAST: None TECHNIQUE: CT of the lumbar spine is performed on a spiral scan at 3 mm thick sections. Reconstructed images are performed in the coronal and sagittal planes. FINDINGS: There is loss of disc height throughout the lumbar spine. There is a grade 1 approaching gr john 2 spondylolisthesis of L5 anteriorly on S1. Vacuum disc phenomenon is present at L3-4. T11-T12: No focal disc herniation or significant disc bulge is evident. No spinal canal stenosis or n eural foraminal stenosis present. T12-L1: No focal disc herniation or significant disc bulge is evident. No spinal canal stenosis. Mi ld right foraminal stenosis is present. Moderate left foraminal stenosis is present L1-L2: No focal disc herniation or significant disc bulge is evident. No spinal canal stenosis. Sev ere right foraminal stenosis is present. Moderate left foraminal stenosis is present L2-L3: Mild disc bulge is present within the intrathecal sac contact. No AP spinal canal stenosis pre sent. Moderate right foraminal stenosis is present. Mild left foraminal stenosis is present. Mild fac et hypertrophy is present. L3-L4: Facet hypertrophy is present. There is moderate left and severe right foraminal stenosis. Face t vacuum phenomenon is present. No focal disc herniation or significant disc bulge is evident. Some c alcification or spinal ligament may be present. L4-L5: Severe right foraminal stenosis is present. Moderate to severe left foraminal stenosis is pres ent. Very subtle grade 1 spondylolisthesis of L4 internal 5 may be present with disc uncovering. This has mild anterior thecal sac compression. No AP spinal canal stenosis present. L5-S1: Disc uncovering is present within the right paracentral and right lateral direction. This like ly has severe compression of the exiting nerve root on the right. There is severe right foraminal adriana nosis due to the disc bulging and spondylolisthesis.. Severe but lesser stenosis of the left foramen from disc bulging is present. No AP spinal canal stenosis is present with the AP dimension measuring 1.6 cm. Severe scoliosis is present. Please also see scoliosis study. IMPRESSION: 1. Severe foraminal stenosis due to scoliosis just above. 2. Severe stenosis of the foramen L5-S1 also complicated by disc bulging at the lateral foramen. 3. Spondylolisthesis grade 1 approaching grade 2 at L5 anteriorly on S1. Mild grade 1 L4 anterior to L5 is present. 4. Multilevel degenerative disc changes.
== END | disposition home or self-care (01) ==
LOC: RADCTMAIN 07:34
PROVIDERS: ATTEND Orthopaedic Surgery
DX: M47.814 Spondylosis without myelopathy or radiculopathy, thoracic region (principal); M41.84 Other forms of scoliosis, thoracic region
CPT/HCPCS: 72082; 72128; 72131

== ENCOUNTER 2023-08-25 12:06 | Day surgery (SDC) | payer MEDICARE, OTHER ==
[~2023-08-25 12:06] MED LIST changes: -LACTATED RINGERS 1,000 ML IV SCH; +LIDOCAINE 1% (10MG/ML) FOR IV START INTRADERMA PRN; -TOBRA-DEXAMET 0.3-0.1% OPHTH OINT 3.5 GM TUBE OPHTHALMIC ONE
[2023-08-25 13:58] VITALS: RESP 16; TEMP 97.5
[2023-08-25] MEDS: LACTATED RINGERS 1,000 ML IV SCH ×2 (14:07→14:33)
[2023-08-25] MEDS ORDERED: PROPOFOL 10 MG/ML 20 ML VIAL IV ONE (14:34)
--- NOTE | 2023-08-25 15:05 | P.PCN ---
Date of Procedure: 08/25/23 Procedure(s) Performed: BRIEF HISTORY: Patient is a 63-year-old pleasant white male scheduled for an elective colonoscopy as a part of screening for colon cancer. PROCEDURE PERFORMED: Colonoscopy. PREOPERATIVE DIAGNOSIS: Screening for colon cancer. IV sedation per Anesthesia. PROCEDURE: After informed consent was obtained, the patient, was brought into the endoscopy unit. IV sedation was administered by Anesthesia under continuous monitoring. Digital rectal examination was normal. Initially the Olympus CF-160 flexible video colonoscope was then inserted in the rectum, gradually advanced into the sigmoid: Further advancement was not possible because of acute angulation in this area. The scope was removed and a pediatric colonoscopy was in August rectum and gradually advanced into the cecum with moderate to severe difficulty. Careful examination was performed as the scope was gradually being withdrawn. Ileocecal valve and the appendiceal orifice were visualized and appeared normal. Prep was excellent. Mucosa of the cecum, ascending colon, transverse colon, descending colon, sigmoid colon, and rectum appeared normal. Scattered left-sided diverticulosis. Retroflexion was performed in the rectum and no lesions were seen. The patient tolerated the procedure well. IMPRESSION: Normal-appearing colon from rectum to cecum with no evidence of colorectal neoplasia. Moderate sigmoid diverticulosis. RECOMMENDATIONS: Findings of this examination were discussed with the patient as well as his family. He was advised to have a repeat screening colonoscopy.
[2023-08-25 15:50] VITALS: BP 119/69; PULSE 41
== END 2023-08-25 15:51 | disposition home or self-care (01) ==
LOC: ORWHC2ENDO 12:06
PROVIDERS: ATTEND Internal Medicine Gastroenterology
DX: Z12.11 Encounter for screening for malignant neoplasm of colon (principal); K57.30 Diverticulosis of large intestine without perforation or abscess without bleeding; I10 Essential (primary) hypertension; E78.5 Hyperlipidemia, unspecified; G40.909 Epilepsy, unspecified, not intractable, without status epilepticus; K21.9 Gastro-esophageal reflux disease without esophagitis; F32.A Depression, unspecified; F41.9 Anxiety disorder, unspecified; F17.210 Nicotine dependence, cigarettes, uncomplicated; Z88.6 Allergy status to analgesic agent; Z88.8 Allergy status to other drugs, medicaments and biological substances; Z91.041 Radiographic dye allergy status; Z79.899 Other long term (current) drug therapy
CPT/HCPCS: J2704; G0121

== ENCOUNTER → 2024-03-20 | Outpatient (CLI) | payer MEDICARE ==
--- NOTE | 2024-03-20 15:28 | US ---
EXAMINATION TYPE: US liver DATE OF EXAM: 03/20/2024 COMPARISON: CT chest abdomen and pelvis 06/20/2023, abdominal ultrasound 07/20/2020 CLINICAL INDICATION: Male, 64 years old with history of R74.01 ELEVATION OF LEVELS OF LIVER TRANSAMIN ASE L; Elevated liver enzymes TECHNIQUE: Multiple sonographic images of the right upper quadrant are obtained. FINDINGS: EXAM MEASUREMENTS: Liver Length: 15.2 cm Gallbladder Wall: 0.3 cm CBD: 0.4 cm Right Kidney: 10.8 x 4.8 x 5.0 cm Pancreas: Obscured by bowel gas Liver: appears wnl Gallbladder: no evidence of stones Evidence for sonographic Rodríguez's sign: no CBD: appears wnl Right Kidney: no evidence of hydronephrosis Pancreas is obscured by overlying bowel gas. The visualized liver appears within normal limits withou t focal lesion identified. Gallbladder demonstrates no evidence of cholelithiasis, wall thickening, o r surrounding fluid. Negative sonographic Rodríguez's sign. Common bile duct appears within normal limit s. Right kidney demonstrates no evidence of hydronephrosis, nephrolithiasis, or solid mass. IMPRESSION: No ultrasound evidence for an acute process/abnormality.
== END | disposition home or self-care (01) ==
LOC: RADUSWWP 07:29
PROVIDERS: ATTEND Internal Medicine
DX: R74.01 Elevation of levels of liver transaminase levels (principal)
CPT/HCPCS: 76705

== ENCOUNTER → 2024-12-23 | Outpatient (CLI) | payer MEDICARE ==
--- NOTE | 2024-12-23 09:56 | CTL ---
EXAMINATION TYPE: CT Low Dose Lung DATE OF EXAM ORDERED: 12/23/2024 COMPARISON: Whole-body CT June 20, 2023 CLINICAL INDICATION: Male, 64 years old with history of Z12.2 ENCNTR SCREEN FOR MALIGNANT NEOPLASM OF RESP; PHH, current smoker 1ppd x30 years, Lung cancer screening, History of Smoking/tobacco use. TECHNIQUE: Low dose computed tomography scan was performed through the chest at 1 mm thick sections a nd reconstructed images in multiple planes at 1 mm and [address] DLP: [address] CTDI: 1.92 mGy Automated exposure control for dose reduction was used. CT DIAGNOSTIC QUALITY: Limited, but interpretable FINDINGS: Nodules: RML: There is stable 7 mm calcified nodule or benign granuloma axial image 240 redemonstrated. No new greater than 4 mm noncalcified pulmonary nodules. LUNGS: COPD: Severity: Mild Fibrosis: Severity: None Lymph nodes: Prominent calcified right hilar and subcarinal lymph nodes. Other findings: Ascending aorta measures up to 4.1 cm in diameter stable from prior. RIGHT PLEURAL SPACE: Effusion: None Calcification: None Thickening: None Pneumothorax: None LEFT PLEURAL SPACE: Effusion: None Calcification: None Thickening: None Pneumothorax: None HEART: Heart Size: Normal Coronary Calcification: Moderate Pericardial Effusion: None OTHER FINDINGS: Upper abdomen: None Bony thorax: Multilevel spurring in the spine redemonstrated. Bridging osteophytes are noted Supraclavicular region: None Other: None IMPRESSION: Evidence of old granulomatous disease redemonstrated. No suspicious new noncalcified pulm onary nodules. CT LUNG RAD AND CT CHEST RECOMMENDATION: Lung-Rad 2 Benign Appearance or Behavior: Continue annual sc reening with LDCT in 12 months. S Modifier (other clinically significant findings): None [facility], , 12/23/2024 9:54 AM
== END | disposition home or self-care (01) ==
LOC: RADCTMAIN 08:57
PROVIDERS: ATTEND Family Medicine
DX: Z12.2 Encounter for screening for malignant neoplasm of respiratory organs (principal); F17.210 Nicotine dependence, cigarettes, uncomplicated; J44.9 Chronic obstructive pulmonary disease, unspecified; J84.10 Pulmonary fibrosis, unspecified
CPT/HCPCS: 71271